=== PATIENT | male | born 1975 | race Caucasian/White ===

== ENCOUNTER 2016-12-14 15:23 | Emergency (ER) | payer SELFPAY ==
[~2016-12-14] VITALS: Ht 190.5 cm; Wt 136.4 kg
[~2016-12-14 15:23] MED LIST: BP; FLEXERIL PO; HUMALOG100 UNIT/M SC; KEFLEX500 M1 PO; LISINOPRIL10 MG PO; MEDDOSEPAK PO; METFORMIN1000 MG PO; METHADONE HCL10 MG PO; PERCOCET 10/31 COMBO PO; ULTRAM50 M1 PO; VICTOZA SC; VICTOZA18 MG/3 ML SC
[2016-12-14] MEDS ORDERED: VICTOZA18 MG/3 ML SC (17:28)
[2016-12-14] MEDS ORDERED: HYDROCO/APAP1 T13 PO (17:29)
[2016-12-14 18:06] LABS: HEMATOCRIT 42.8 % (39.0-50.0); HEMOGLOBIN 14.2 g/dl (14.0-18.0); IMMATURE GRANULOCYTES 0.4 % (0.0-1.0); MEAN CELL VOLUME 87.2 fL CALC (80.0-100.0); MEAN CORPUSCULAR HGB 28.9 pG CALC (26.0-32.0); MEAN CORPUSCULAR HGB CONC 33.2 g/L CALC (32.0-36.0); NEUT# 5.99 thou/uL (1.82-7.42); RED BLOOD COUNT 4.91 mill/uL (4.70-6.10); RED CELL DISTRI WIDTH 13.4 % (11.5-15.5)
[2016-12-14 18:40] LABS: ALBUMIN 3.5 g/dL (3.2-5.0); ALKALINE PHOSPHATASE 164 u/l (38-126); ANION GAP 15 (6-22 (CALC)); BILIRUBIN, TOTAL 0.4 mg/dL (0.0-1.4); BUN 17 mg/dL (9-20); BUN/CREATININE RATIO 12 (12-20 (CALC)); CALCIUM 8.7 mg/dL (8.4-10.2); CARBON DIOXIDE 26 mmol/l (22-30); CHLORIDE 98 mmol/l (95-108); CREATININE 1.4 mg/dL (0.7-1.3); GFR 56 ML/MIN (>=60 (CALC)); GFR FOR AFR.AMER. > 60 ML/MIN (>=60 (CALC)); POTASSIUM 4.2 mmol/l (3.5-5.1); SGOT/AST 31 u/l (17-59); SGPT/ALT 69 u/l (21-72); SODIUM 135 mmol/l (137-146)
[2016-12-14 18:51] LABS: GLUCOSE 559 mg/dL (75-110)
[2016-12-14 20:34] VITALS: BP 140/92
== END 2016-12-14 20:46 | disposition home or self-care (01) | DRG 639 ==
LOC: ED 15:23
PROVIDERS: Emergency Medicine
DX: E11.65 Type 2 diabetes mellitus with hyperglycemia (principal); Z79.4 Long term (current) use of insulin

== ENCOUNTER 2017-01-25 13:56 | Emergency (ER) | payer SELFPAY ==
[~2017-01-25] VITALS: Ht 190.5 cm; Wt 130.0 kg
[~2017-01-25 13:56] MED LIST changes: +HYDROCO/APAP1 T13 PO
[2017-01-25] MEDS ORDERED: HYDROCODONE/ACE1 TAB PO (14:14)
[2017-01-25] MEDS ORDERED: CLINDAMYCIN300 M1 PO (14:15)
[2017-01-25 14:23] VITALS: BP 168/104
[2017-01-26] MEDS ORDERED: PERCOCET 5/321 COMBO PO (04:23)
== END 2017-01-25 14:30 | disposition home or self-care (01) | DRG 159 ==
LOC: ED 13:56
DX: K05.10 Chronic gingivitis, plaque induced (principal); I10 Essential (primary) hypertension; K08.9 Disorder of teeth and supporting structures, unspecified; E11.9 Type 2 diabetes mellitus without complications

== ENCOUNTER 2017-01-26 02:58 | Emergency (ER) | payer SELFPAY ==
[~2017-01-26] VITALS: Ht 190.5 cm; Wt 131.4 kg
[~2017-01-26 02:58] MED LIST changes: +CLINDAMYCIN300 M1 PO; +HYDROCODONE/ACE1 TAB PO
[2017-01-26] MEDS ORDERED: PERCOCET 5/321 COMBO PO (04:23)
[2017-01-26 04:34] VITALS: BP 157/78
== END 2017-01-26 04:51 | disposition home or self-care (01) | DRG 159 ==
LOC: ED 02:58
DX: K03.81 Cracked tooth (principal); I10 Essential (primary) hypertension; E11.9 Type 2 diabetes mellitus without complications

== ENCOUNTER 2017-02-07 14:46 | Emergency (ER) | payer SELFPAY ==
[~2017-02-07] VITALS: Ht 190.5 cm; Wt 143.0 kg
[~2017-02-07 14:46] MED LIST changes: +PERCOCET 5/321 COMBO PO
[2017-02-07] MEDS ORDERED: VICTOZA18 MG/3 ML SC (15:08)
[2017-02-07 15:21] LABS: HEMATOCRIT 43.1 % (39.0-50.0); HEMOGLOBIN 14.6 g/dl (14.0-18.0); IMMATURE GRANULOCYTES 0.4 % (0.0-1.0); MEAN CELL VOLUME 87.8 fL CALC (80.0-100.0); MEAN CORPUSCULAR HGB 29.7 pG CALC (26.0-32.0); MEAN CORPUSCULAR HGB CONC 33.9 g/L CALC (32.0-36.0); NEUT# 4.69 thou/uL (1.82-7.42); RED BLOOD COUNT 4.91 mill/uL (4.70-6.10); RED CELL DISTRI WIDTH 13.2 % (11.5-15.5)
[2017-02-07 15:33] LABS: ALBUMIN 3.7 g/dL (3.2-5.0); ALKALINE PHOSPHATASE 166 u/l (38-126); ANION GAP 15 (6-22 (CALC)); BILIRUBIN, TOTAL 0.5 mg/dL (0.0-1.4); BUN 16 mg/dL (9-20); BUN/CREATININE RATIO 15 (12-20 (CALC)); CALCIUM 9.2 mg/dL (8.4-10.2); CARBON DIOXIDE 26 mmol/l (22-30); CHLORIDE 96 mmol/l (95-108); CREATININE 1.1 mg/dL (0.7-1.3); GFR > 60 ML/MIN (>=60 (CALC)); GFR FOR AFR.AMER. > 60 ML/MIN (>=60 (CALC)); POTASSIUM 4.2 mmol/l (3.5-5.1); SGOT/AST 35 u/l (17-59); SGPT/ALT 58 u/l (21-72); SODIUM 133 mmol/l (137-146); TOTAL PROTEIN 7.8 g/dL (6.3-8.2)
[2017-02-07 15:40] LABS: GLUCOSE 620 mg/dL (75-110)
[2017-02-07 15:47] LABS: MYOGLOBIN 31 ng/mL (0 - 121)
[2017-02-07 17:31] LABS: URINE BILIRUBIN - DIPSTICK NEGATIVE (NEGATIVE); URINE BLOOD DIPSTICK NEGATIVE (NEGATIVE); URINE CLARITY CLEAR; URINE COLOR YELLOW; URINE GLUCOSE - DIPSTICK >=1000 mg/dL (NEGATIVE); URINE KETONE NEGATIVE (NEGATIVE); URINE LEUK ESTERASE NEGATIVE (NEGATIVE); URINE NITRITE - DIPSTICK NEGATIVE (Negative); URINE PROTEIN - DIPSTICK 100 mg/dL (NEG-TRACE); URINE UROBILINOGEN - DIPSTICK 0.2 E.U./dL (0.2)
[2017-02-07 17:48] LABS: URINE RBC 0-2 RBC/hpf (0-5); URINE WBC 0-2 WBC/hpf (0-5)
[2017-02-07 18:47] VITALS: BP 154/87
== END 2017-02-07 18:47 | disposition home or self-care (01) | DRG 639 ==
LOC: ED 14:46
PROVIDERS: Emergency Medicine
DX: E11.65 Type 2 diabetes mellitus with hyperglycemia (principal); R42 Dizziness and giddiness; Z79.4 Long term (current) use of insulin

== ENCOUNTER 2017-04-08 14:10 | Emergency (ER) | payer SELFPAY ==
[~2017-04-08] VITALS: Ht 190.5 cm; Wt 150.0 kg
[2017-04-08 16:45] VITALS: BP 167/95
== END 2017-04-08 17:15 | disposition home or self-care (01) | DRG 93 ==
LOC: ED 14:10
DX: G89.29 Other chronic pain (principal); M54.5 Low back pain

== ENCOUNTER 2017-05-11 17:46 | Emergency (ER) | payer SELFPAY ==
[~2017-05-11] VITALS: Ht 190.5 cm; Wt 127.0 kg
[2017-05-11 19:43] VITALS: BP 127/98
== END 2017-05-11 19:44 | disposition home or self-care (01) | DRG 552 ==
LOC: ED 17:46
DX: M54.5 Low back pain (principal); I10 Essential (primary) hypertension; G89.29 Other chronic pain; E11.9 Type 2 diabetes mellitus without complications; W01.0XXA Fall on same level from slipping, tripping and stumbling without subsequent striking against object, initial encounter; Y92.512 Supermarket, store or market as the place of occurrence of the external cause

== ENCOUNTER 2017-06-13 23:40 | Emergency (ER) | payer SELFPAY ==
[~2017-06-13] VITALS: Ht 190.5 cm; Wt 127.3 kg
[2017-06-14 01:30] VITALS: BP 134/104
== END 2017-06-14 01:30 | disposition left against medical advice (07) | DRG 951 ==
LOC: ED 23:40 → LWOBS 06-14 01:30
DX: Z91.19 Patient's noncompliance with other medical treatment and regimen (principal)

== ENCOUNTER 2017-06-19 15:04 | Observation (INO) | payer SELFPAY ==
[~2017-06-19] VITALS: Ht 190.5 cm; Wt 131.0 kg
[2017-06-19] MEDS ORDERED: LORTAB 10-325 M1 TAB PO (15:24)
[2017-06-19 15:42] LABS: HEMOGLOBIN 13.1 g/dl (14.0-18.0); IMMATURE GRANULOCYTES 0.2 % (0.0-1.0); MEAN CORPUSCULAR HGB CONC 34.5 g/L CALC (32.0-36.0); NEUT# 5.54 thou/uL (1.82-7.42); RED BLOOD COUNT 4.37 mill/uL (4.70-6.10); RED CELL DISTRI WIDTH 13.2 % (11.5-15.5)
[2017-06-19 16:00] LABS: ALBUMIN 3.7 g/dL (3.2-5.0); ALKALINE PHOSPHATASE 102 u/l (38-126); ANION GAP 17 (6-22 (CALC)); BILIRUBIN, TOTAL 0.6 mg/dL (0.0-1.4); BUN 20 mg/dL (9-20); BUN/CREATININE RATIO 16 (12-20 (CALC)); CALCIUM 8.9 mg/dL (8.4-10.2); CARBON DIOXIDE 20 mmol/l (22-30); CHLORIDE 106 mmol/l (95-108); CREATININE 1.3 mg/dL (0.7-1.3); GFR > 60 ML/MIN (>=60 (CALC)); GFR FOR AFR.AMER. > 60 ML/MIN (>=60 (CALC)); POTASSIUM 4.6 mmol/l (3.5-5.1); SGOT/AST 19 u/l (17-59); SGPT/ALT 44 u/l (21-72); SODIUM 139 mmol/l (137-146); TOTAL PROTEIN 7.2 g/dL (6.3-8.2)
[2017-06-19 16:06] LABS: GLUCOSE 487 mg/dL (75-110)
[2017-06-19 19:11] LABS: URINE BILIRUBIN - DIPSTICK NEGATIVE (NEGATIVE); URINE BLOOD DIPSTICK NEGATIVE (NEGATIVE); URINE CLARITY CLEAR; URINE COLOR YELLOW; URINE GLUCOSE - DIPSTICK >=1000 mg/dL (NEGATIVE); URINE KETONE NEGATIVE (NEGATIVE); URINE LEUK ESTERASE NEGATIVE (Negative); URINE NITRITE - DIPSTICK NEGATIVE (Negative); URINE PROTEIN - DIPSTICK 100 mg/dL (NEG-TRACE); URINE UROBILINOGEN - DIPSTICK 0.2 E.U./dL (0.2)
[2017-06-19 19:29] LABS: URINE MUCUS FEW hpf (NONE-FEW); URINE SQUAMOUS EPITHELIAL CELL FEW EPI/hpf (0-FEW)
[2017-06-19 20:00] VITALS: BP 133/76
[2017-06-19] MEDS ORDERED: VICTOZA18 MG/3 ML SC (21:49)
[2017-06-19 23:00] VITALS: BP 130/80
[2017-06-20 04:00] VITALS: BP 132/86
[2017-06-20 07:36] VITALS: BP 158/79
[2017-06-20 10:58] LABS: CHOLESTEROL HDL RATIO 4.8 (<4.4 (CALC)); MAGNESIUM 1.8 mg/dL (1.6-2.3)
[2017-06-20 11:30] VITALS: BP 161/97
[2017-06-20] MEDS ORDERED: LORTAB 10-325 M1 TAB PO (15:03)
[2017-06-20 16:11] VITALS: BP 188/126
== END 2017-06-20 17:38 | disposition home or self-care (01) | DRG 93 ==
LOC: ED 15:04 → ED-I 17:00 → ED 18:59 → MS2 19:00
PROVIDERS: Emergency Medicine; Nurse Practitioner Family; ADMIT Internal Medicine; ATTEND Internal Medicine
DX: G89.29 Other chronic pain (principal); E11.65 Type 2 diabetes mellitus with hyperglycemia; I10 Essential (primary) hypertension; M51.26 Other intervertebral disc displacement, lumbar region; M48.06 Spinal stenosis, lumbar region; D64.9 Anemia, unspecified; Z68.36 Body mass index [BMI] 36.0-36.9, adult; Z91.14 Patient's other noncompliance with medication regimen; Z79.84 Long term (current) use of oral hypoglycemic drugs; Z79.891 Long term (current) use of opiate analgesic; Z79.4 Long term (current) use of insulin
CPT/HCPCS: G0378

== ENCOUNTER 2017-08-19 16:11 | Observation (INO) | payer SELFPAY ==
[~2017-08-19] VITALS: Ht 190.5 cm; Wt 131.8 kg
[~2017-08-19 16:11] MED LIST changes: +LORTAB 10-325 M1 TAB PO
[2017-08-19 16:35] LABS: HEMOGLOBIN 13.8 g/dl (14.0-18.0); IMMATURE GRANULOCYTES 0.3 % (0.0-1.0); MEAN CELL VOLUME 88.2 fL CALC (80.0-100.0); MEAN CORPUSCULAR HGB 29.7 pG CALC (26.0-32.0); MEAN CORPUSCULAR HGB CONC 33.7 g/L CALC (32.0-36.0); NEUT# 4.92 thou/uL (1.82-7.42); RED BLOOD COUNT 4.65 mill/uL (4.70-6.10)
[2017-08-19 16:45] LABS: ALBUMIN 3.7 g/dL (3.2-5.0); ALKALINE PHOSPHATASE 126 u/l (38-126); ANION GAP 18 (6-22 (CALC)); BILIRUBIN, TOTAL 0.6 mg/dL (0.0-1.4); BUN 18 mg/dL (9-20); BUN/CREATININE RATIO 13 (12-20 (CALC)); CALCIUM 8.7 mg/dL (8.4-10.2); CARBON DIOXIDE 21 mmol/l (22-30); CHLORIDE 100 mmol/l (95-108); CREATININE 1.4 mg/dL (0.7-1.3); GFR 56 ML/MIN (>=60 (CALC)); GFR FOR AFR.AMER. > 60 ML/MIN (>=60 (CALC)); LIPASE 164 u/l (23-300); POTASSIUM 4.6 mmol/l (3.5-5.1); SGOT/AST 39 u/l (17-59); SGPT/ALT 47 u/l (21-72); SODIUM 134 mmol/l (137-146); TOTAL PROTEIN 7.3 g/dL (6.3-8.2)
[2017-08-19 17:02] LABS: GLUCOSE 566 mg/dL (75-110)
[2017-08-19] MEDS ORDERED: LANTUS100 UNIT/M SC (17:38)
[2017-08-19 17:55] LABS: URINE BILIRUBIN - DIPSTICK NEGATIVE (NEGATIVE); URINE BLOOD DIPSTICK TRACE-LYSED (NEGATIVE); URINE CLARITY CLEAR; URINE COLOR YELLOW; URINE GLUCOSE - DIPSTICK >=1000 mg/dL (NEGATIVE); URINE KETONE NEGATIVE (NEGATIVE); URINE LEUK ESTERASE NEGATIVE (NEGATIVE); URINE NITRITE - DIPSTICK NEGATIVE (Negative); URINE PH 5.5 (4.5-8.0); URINE PROTEIN - DIPSTICK 100 mg/dL (NEG-TRACE); URINE UROBILINOGEN - DIPSTICK 0.2 E.U./dL (0.2)
[2017-08-19 18:05] LABS: BARBITURATES NEGATIVE (NEGATIVE); COCAINE NEGATIVE (NEGATIVE); METHADONE POSITIVE (NEGATIVE); OXCYCODONE NEGATIVE (NEGATIVE); TETRAHYDROCANNABIONOL NEGATIVE (NEGATIVE); TRICYLIC ANTIDEPRESSANTS NEGATIVE (NEGATIVE)
[2017-08-19 18:22] LABS: URINE SQUAMOUS EPITHELIAL CELL FEW EPI/hpf (0-FEW)
[2017-08-19 18:58] VITALS: BP 155/88
[2017-08-20 03:52] VITALS: BP 149/98
[2017-08-20 05:37] LABS: ANION GAP 10 (6-22 (CALC)); BUN 16 mg/dL (9-20); BUN/CREATININE RATIO 13 (12-20 (CALC)); CALCIUM 8.5 mg/dL (8.4-10.2); CARBON DIOXIDE 27 mmol/l (22-30); CHLORIDE 106 mmol/l (95-108); CREATININE 1.2 mg/dL (0.7-1.3); GFR > 60 ML/MIN (>=60 (CALC)); GFR FOR AFR.AMER. > 60 ML/MIN (>=60 (CALC)); GLUCOSE 199 mg/dL (75-110); MAGNESIUM 1.8 mg/dL (1.6-2.3); SODIUM 139 mmol/l (137-146)
[2017-08-20 08:06] VITALS: BP 133/84
[2017-08-20 08:09] VITALS: BP 133/84
[2017-08-20] MEDS ORDERED: LISINOPRIL20 M1 PO (13:02)
== END 2017-08-20 13:25 | disposition home or self-care (01) | DRG 639 ==
LOC: ED 16:11 → ED-I 17:15 → ED 17:36 → MS2 17:37
PROVIDERS: Family Medicine; ADMIT Internal Medicine; ATTEND Internal Medicine
DX: E11.65 Type 2 diabetes mellitus with hyperglycemia (principal); G89.29 Other chronic pain; I10 Essential (primary) hypertension; Z79.4 Long term (current) use of insulin; M54.9 Dorsalgia, unspecified; Z79.891 Long term (current) use of opiate analgesic
CPT/HCPCS: G0378

== ENCOUNTER 2017-09-24 20:39 | Emergency (ER) | payer SELFPAY ==
[~2017-09-24] VITALS: Ht 190.5 cm; Wt 127.3 kg
[~2017-09-24 20:39] MED LIST changes: +LANTUS100 UNIT/M SC; +LISINOPRIL20 M1 PO
[2017-09-24] MEDS ORDERED: LEVEMIR100 UNIT/M SC (20:58)
[2017-09-24 21:13] LABS: HEMATOCRIT 46.9 % (39.0-50.0); HEMOGLOBIN 15.5 g/dl (14.0-18.0); IMMATURE GRANULOCYTES 0.4 % (0.0-1.0); MEAN CORPUSCULAR HGB 29.4 pG CALC (26.0-32.0); NEUT# 6.14 thou/uL (1.82-7.42); RED BLOOD COUNT 5.27 mill/uL (4.70-6.10); RED CELL DISTRI WIDTH 12.8 % (11.5-15.5)
[2017-09-24 21:37] LABS: ALBUMIN 4.1 g/dL (3.2-5.0); BILIRUBIN, TOTAL 0.4 mg/dL (0.0-1.4); CALCIUM 9.4 mg/dL (8.4-10.2); CREATININE 1.6 mg/dL (0.7-1.3); POTASSIUM 5.1 mmol/l (3.5-5.1); TOTAL PROTEIN 7.4 g/dL (6.3-8.2)
[2017-09-25 01:40] VITALS: BP 147/90
== END 2017-09-25 01:45 | disposition home or self-care (01) | DRG 552 ==
LOC: ED 20:39
PROVIDERS: Emergency Medicine
DX: S33.5XXA Sprain of ligaments of lumbar spine, initial encounter (principal); E11.9 Type 2 diabetes mellitus without complications; G89.29 Other chronic pain; I10 Essential (primary) hypertension; W18.39XA Other fall on same level, initial encounter; M54.9 Dorsalgia, unspecified

== ENCOUNTER 2017-09-27 19:05 | Observation (INO) | payer OTHER ==
[~2017-09-27] VITALS: Ht 190.5 cm; Wt 126.3 kg
[~2017-09-27 19:05] MED LIST changes: +LEVEMIR100 UNIT/M SC
[2017-09-28 04:45] VITALS: BP 173/92
[2017-09-28 08:30] VITALS: BP 128/74
[2017-09-28 10:37] LABS: ANION GAP 13 (6-22 (CALC)); BUN 21 mg/dL (9-20); BUN/CREATININE RATIO 17 (12-20 (CALC)); CALCIUM 8.9 mg/dL (8.4-10.2); CARBON DIOXIDE 26 mmol/l (22-30); CHLORIDE 102 mmol/l (95-108); CREATININE 1.3 mg/dL (0.7-1.3); GFR > 60 ML/MIN (>=60 (CALC)); GFR FOR AFR.AMER. > 60 ML/MIN (>=60 (CALC)); GLUCOSE 398 mg/dL (75-110); MAGNESIUM 1.8 mg/dL (1.6-2.3); POTASSIUM 4.6 mmol/l (3.5-5.1); SODIUM 137 mmol/l (137-146)
[2017-09-28 10:47] LABS: HEMATOCRIT 38.6 % (39.0-50.0); IMMATURE GRANULOCYTES 0.2 % (0.0-1.0); MEAN CELL VOLUME 87.5 fL CALC (80.0-100.0); MEAN CORPUSCULAR HGB 29.5 pG CALC (26.0-32.0); MEAN CORPUSCULAR HGB CONC 33.7 g/L CALC (32.0-36.0); NEUT# 5.36 thou/uL (1.82-7.42); RED BLOOD COUNT 4.41 mill/uL (4.70-6.10); RED CELL DISTRI WIDTH 12.5 % (11.5-15.5)
[2017-09-28 11:06] VITALS: BP 128/74
== END 2017-09-28 14:50 | disposition home or self-care (01) | DRG 552 ==
LOC: ED 19:05 → ED-I 09-28 04:00 → ED 09-28 04:25 → MS2 09-28 04:26
PROVIDERS: Nurse Practitioner Family; ADMIT Internal Medicine; ATTEND Internal Medicine
DX: M54.16 Radiculopathy, lumbar region (principal); E11.9 Type 2 diabetes mellitus without complications; I10 Essential (primary) hypertension; V48.5XXA Car driver injured in noncollision transport accident in traffic accident, initial encounter; Z79.891 Long term (current) use of opiate analgesic
CPT/HCPCS: G0378

== ENCOUNTER 2017-10-08 23:32 | Emergency (ER) | payer SELFPAY ==
[~2017-10-08] VITALS: Ht 190.5 cm; Wt 125.0 kg
[2017-10-09] MEDS ORDERED: NAPROSYN500 MG PO (01:49)
[2017-10-09 02:01] VITALS: BP 143/78
== END 2017-10-09 02:16 | disposition home or self-care (01) | DRG 563 ==
LOC: ED 23:32
DX: S39.012A Strain of muscle, fascia and tendon of lower back, initial encounter (principal); W18.30XA Fall on same level, unspecified, initial encounter; Y93.01 Activity, walking, marching and hiking; Y92.488 Other paved roadways as the place of occurrence of the external cause

== ENCOUNTER 2018-01-11 00:47 | Emergency (ER) | payer SELFPAY ==
[~2018-01-11] VITALS: Ht 190.5 cm; Wt 127.3 kg
[~2018-01-11 00:47] MED LIST changes: +NAPROSYN500 MG PO
[2018-01-11 01:37] LABS: URINE BILIRUBIN - DIPSTICK NEGATIVE (NEGATIVE); URINE BLOOD DIPSTICK TRACE-LYSED (NEGATIVE); URINE COLOR YELLOW; URINE GLUCOSE - DIPSTICK >=1000 mg/dL (NEGATIVE); URINE KETONE NEGATIVE (NEGATIVE); URINE LEUK ESTERASE NEGATIVE (NEGATIVE); URINE NITRITE - DIPSTICK NEGATIVE (Negative); URINE PH 5.5 (4.5-8.0); URINE PROTEIN - DIPSTICK 100 mg/dL (NEG-TRACE); URINE UROBILINOGEN - DIPSTICK 0.2 E.U./dL (0.2)
[2018-01-11 01:40] LABS: URINE CLARITY SL CLOUDY
[2018-01-11 01:44] LABS: BARBITURATES NEGATIVE (NEGATIVE); COCAINE NEGATIVE (NEGATIVE); METHADONE POSITIVE (NEGATIVE); TETRAHYDROCANNABIONOL NEGATIVE (NEGATIVE); TRICYLIC ANTIDEPRESSANTS POSITIVE (NEGATIVE)
[2018-01-11 01:45] LABS: OXCYCODONE NEGATIVE (NEGATIVE)
[2018-01-11 01:46] LABS: URINE BACTERIA FEW hpf; URINE MUCUS FEW hpf (NONE-FEW); URINE RBC 0-2 RBC/hpf (0-5); URINE SQUAMOUS EPITHELIAL CELL MODERATE EPI/hpf (0-FEW); URINE WBC 0-2 WBC/hpf (0-5)
[2018-01-11] MEDS ORDERED: ASPERCREME LIDOCA41 TOP (02:06)
[2018-01-11 02:28] VITALS: BP 153/111
== END 2018-01-11 03:11 | disposition home or self-care (01) | DRG 605 ==
LOC: ED 00:47
PROVIDERS: Family Medicine
DX: S30.0XXA Contusion of lower back and pelvis, initial encounter (principal); M54.5 Low back pain; W01.190A Fall on same level from slipping, tripping and stumbling with subsequent striking against furniture, initial encounter; Y93.9 Activity, unspecified; Y92.009 Unspecified place in unspecified non-institutional (private) residence as the place of occurrence of the external cause

== ENCOUNTER 2018-01-12 23:25 | Emergency (ER) | payer SELFPAY ==
[~2018-01-12] VITALS: Ht 190.5 cm; Wt 128.0 kg
[~2018-01-12 23:25] MED LIST changes: +ASPERCREME LIDOCA41 TOP
[2018-01-13 00:04] LABS: IMMATURE GRANULOCYTES 0.3 % (0.0-1.0); MEAN CELL VOLUME 86.9 fL CALC (80.0-100.0); MEAN CORPUSCULAR HGB 29.5 pG CALC (26.0-32.0); NEUT# 5.43 thou/uL (1.82-7.42); RED BLOOD COUNT 5.35 mill/uL (4.70-6.10); RED CELL DISTRI WIDTH 13.3 % (11.5-15.5)
[2018-01-13 00:05] LABS: HEMATOCRIT 46.5 % (39.0-50.0); HEMOGLOBIN 15.8 g/dl (14.0-18.0)
[2018-01-13 00:23] LABS: ALBUMIN 3.7 g/dL (3.2-5.0); ALKALINE PHOSPHATASE 149 u/l (38-126); ANION GAP 15 (6-22 (CALC)); BILIRUBIN, TOTAL 0.4 mg/dL (0.0-1.4); BUN 17 mg/dL (9-20); BUN/CREATININE RATIO 14 (12-20 (CALC)); CARBON DIOXIDE 24 mmol/l (22-30); CHLORIDE 100 mmol/l (95-108); CREATININE 1.2 mg/dL (0.7-1.3); GFR > 60 ML/MIN (>=60 (CALC)); GFR FOR AFR.AMER. > 60 ML/MIN (>=60 (CALC)); POTASSIUM 4.2 mmol/l (3.5-5.1); SGOT/AST 27 u/l (17-59); SGPT/ALT 50 u/l (21-72); SODIUM 136 mmol/l (137-146); TOTAL PROTEIN 7.8 g/dL (6.3-8.2)
[2018-01-13 02:40] VITALS: BP 139/94
== END 2018-01-13 02:40 | disposition home or self-care (01) | DRG 639 ==
LOC: ED 23:25
PROVIDERS: Emergency Medicine
DX: E11.65 Type 2 diabetes mellitus with hyperglycemia (principal); Z79.4 Long term (current) use of insulin; I10 Essential (primary) hypertension; G89.29 Other chronic pain; M54.9 Dorsalgia, unspecified

== ENCOUNTER 2018-01-16 02:48 | Emergency (ER) | payer SELFPAY ==
[~2018-01-16] VITALS: Ht 190.5 cm; Wt 128.0 kg
[2018-01-16 03:42] LABS: HEMATOCRIT 45.4 % (39.0-50.0); HEMOGLOBIN 15.4 g/dl (14.0-18.0); IMMATURE GRANULOCYTES 0.2 % (0.0-1.0); MEAN CELL VOLUME 86.8 fL CALC (80.0-100.0); MEAN CORPUSCULAR HGB 29.4 pG CALC (26.0-32.0); MEAN CORPUSCULAR HGB CONC 33.9 g/L CALC (32.0-36.0); NEUT# 5.1 thou/uL (1.82-7.42); RED BLOOD COUNT 5.23 mill/uL (4.70-6.10); RED CELL DISTRI WIDTH 13.2 % (11.5-15.5)
[2018-01-16 03:53] LABS: ALKALINE PHOSPHATASE 145 u/l (38-126); ANION GAP 22 (6-22 (CALC)); BILIRUBIN, TOTAL 0.6 mg/dL (0.0-1.4); BUN 16 mg/dL (9-20); BUN/CREATININE RATIO 14 (12-20 (CALC)); CARBON DIOXIDE 20 mmol/l (22-30); CHLORIDE 95 mmol/l (95-108); CREATININE 1.2 mg/dL (0.7-1.3); GFR > 60 ML/MIN (>=60 (CALC)); GFR FOR AFR.AMER. > 60 ML/MIN (>=60 (CALC)); POTASSIUM 4.3 mmol/l (3.5-5.1); SGOT/AST 23 u/l (17-59); SGPT/ALT 46 u/l (21-72); SODIUM 133 mmol/l (137-146)
[2018-01-16 04:53] VITALS: BP 168/108
== END 2018-01-16 05:20 | disposition home or self-care (01) | DRG 639 ==
LOC: ED 02:48
PROVIDERS: Emergency Medicine
DX: E11.65 Type 2 diabetes mellitus with hyperglycemia (principal); I10 Essential (primary) hypertension; G89.29 Other chronic pain; M54.9 Dorsalgia, unspecified; Z91.14 Patient's other noncompliance with medication regimen

== ENCOUNTER 2018-01-16 20:02 | Emergency (ER) | payer SELFPAY ==
[~2018-01-16] VITALS: Ht 190.5 cm; Wt 136.0 kg
[2018-01-16 20:14] VITALS: BP 184/119
== END 2018-01-16 20:15 | disposition left against medical advice (07) | DRG 552 ==
LOC: ED 20:02
DX: M54.9 Dorsalgia, unspecified (principal); E11.65 Type 2 diabetes mellitus with hyperglycemia; I10 Essential (primary) hypertension; G89.29 Other chronic pain; Z91.19 Patient's noncompliance with other medical treatment and regimen

== ENCOUNTER 2018-01-16 21:57 | Emergency (ER) | payer SELFPAY ==
[~2018-01-16] VITALS: Ht 190.5 cm; Wt 140.0 kg
[2018-01-16 22:02] VITALS: BP 164/110
== END 2018-01-16 22:12 | disposition left against medical advice (07) | DRG 552 ==
LOC: ED 21:57
DX: M54.9 Dorsalgia, unspecified (principal); G89.29 Other chronic pain; E11.65 Type 2 diabetes mellitus with hyperglycemia; I10 Essential (primary) hypertension; Z91.19 Patient's noncompliance with other medical treatment and regimen

== ENCOUNTER 2018-05-21 06:32 | Emergency (ER) | payer SELFPAY ==
[~2018-05-21] VITALS: Ht 190.5 cm; Wt 127.2 kg
[2018-05-21 07:02] VITALS: BP 153/117
== END 2018-05-21 07:44 | disposition home or self-care (01) | DRG 552 ==
LOC: ED 06:32
DX: M54.5 Low back pain (principal); G89.29 Other chronic pain; E11.9 Type 2 diabetes mellitus without complications; I10 Essential (primary) hypertension; Z79.891 Long term (current) use of opiate analgesic

== ENCOUNTER 2018-08-05 14:00 | Emergency (ER) | payer SELFPAY ==
[~2018-08-05] VITALS: Ht 190.5 cm; Wt 136.0 kg
[2018-08-05 14:00] VITALS: BP 140/98
== END 2018-08-05 14:10 | disposition left against medical advice (07) | DRG 951 ==
LOC: ED 14:00 → LWOBS 14:10
DX: Z91.19 Patient's noncompliance with other medical treatment and regimen (principal)

== ENCOUNTER 2018-08-06 05:14 | Emergency (ER) | payer SELFPAY | END 2018-08-06 05:35 | disposition left against medical advice (07) | DRG 951 | LOC: ED 05:14 → LWOBS 05:35 | DX: Z91.19 Patient's noncompliance with other medical treatment and regimen (principal) ==

== ENCOUNTER 2018-08-09 14:17 | Emergency (ER) | payer SELFPAY | END 2018-08-09 15:01 | disposition left against medical advice (07) | DRG 951 | LOC: ED 14:17 → LWOBS 15:01 | DX: Z91.19 Patient's noncompliance with other medical treatment and regimen (principal) ==

== ENCOUNTER 2018-08-10 11:38 | Inpatient (IN) | payer SELFPAY ==
[~2018-08-10] VITALS: Ht 190.5 cm; Wt 127.0 kg
[2018-08-10 12:04] LABS: HEMATOCRIT 40.5 % (39.0-50.0); HEMOGLOBIN 13.6 g/dl (14.0-18.0); IMMATURE GRANULOCYTES 0.3 % (0.0-5.0); MEAN CELL VOLUME 88.6 fL CALC (80.0-100.0); MEAN CORPUSCULAR HGB 29.8 pG CALC (26.0-32.0); MEAN CORPUSCULAR HGB CONC 33.6 g/L CALC (32.0-36.0); NEUT# 6.57 thou/uL (1.82-7.42); RED BLOOD COUNT 4.57 mill/uL (4.70-6.10); RED CELL DISTRI WIDTH 13.4 % (11.5-15.5)
[2018-08-10 12:18] LABS: ALBUMIN 3.2 g/dL (3.2-5.0); ALKALINE PHOSPHATASE 144 u/l (38-126); BILIRUBIN, TOTAL 0.4 mg/dL (0.0-1.4); BUN 18 mg/dL (9-20); BUN/CREATININE RATIO 14 (12-20 (CALC)); CARBON DIOXIDE 20 mmol/l (22-30); CREATININE 1.3 mg/dL (0.7-1.3); GFR > 60 ML/MIN (>=60 (CALC)); GFR FOR AFR.AMER. > 60 ML/MIN (>=60 (CALC)); POTASSIUM 4.3 mmol/l (3.5-5.1); SGOT/AST 17 u/l (17-59); SODIUM 139 mmol/l (137-146); TOTAL PROTEIN 6.7 g/dL (6.3-8.2)
[2018-08-10 12:19] LABS: ANION GAP 15 (6-22 (CALC)); CHLORIDE 108 mmol/l (95-108); ETHYL ALCOHOL 0 mg/dl (0-30)
[2018-08-10 12:40] LABS: URINE BILIRUBIN - DIPSTICK NEGATIVE (NEGATIVE); URINE BLOOD DIPSTICK NEGATIVE (NEGATIVE); URINE COLOR YELLOW; URINE GLUCOSE - DIPSTICK >=1000 mg/dL (NEGATIVE); URINE KETONE NEGATIVE (NEGATIVE); URINE LEUK ESTERASE NEGATIVE (NEGATIVE); URINE NITRITE - DIPSTICK NEGATIVE (Negative); URINE PH 5.5 (4.5-8.0); URINE PROTEIN - DIPSTICK 100 mg/dL (NEG-TRACE); URINE SPECIFIC GRAVITY 1.015; URINE UROBILINOGEN - DIPSTICK 0.2 E.U./dL (0.2)
[2018-08-10 12:41] LABS: URINE CLARITY CLEAR
[2018-08-10 12:42] LABS: COCAINE NEGATIVE (NEGATIVE); TETRAHYDROCANNABIONOL NEGATIVE (NEGATIVE)
[2018-08-10 12:43] LABS: BARBITURATES NEGATIVE (NEGATIVE); METHADONE NEGATIVE (NEGATIVE); OXCYCODONE NEGATIVE (NEGATIVE); TRICYLIC ANTIDEPRESSANTS NEGATIVE (NEGATIVE)
[2018-08-10 12:50] LABS: URINE SQUAMOUS EPITHELIAL CELL FEW EPI/hpf (0-FEW)
[2018-08-10 16:30] VITALS: BP 157/85
[2018-08-10 20:00] VITALS: BP 135/85
[2018-08-10 20:44] LABS: HEMATOCRIT 40.4 % (39.0-50.0); HEMOGLOBIN 13.2 g/dl (14.0-18.0); IMMATURE GRANULOCYTES 0.4 % (0.0-5.0); MEAN CELL VOLUME 91.2 fL CALC (80.0-100.0); MEAN CORPUSCULAR HGB 29.8 pG CALC (26.0-32.0); MEAN CORPUSCULAR HGB CONC 32.7 g/L CALC (32.0-36.0); NEUT# 5.06 thou/uL (1.82-7.42); RED BLOOD COUNT 4.43 mill/uL (4.70-6.10); RED CELL DISTRI WIDTH 13.8 % (11.5-15.5)
[2018-08-10 21:00] VITALS: BP 108/54
[2018-08-10 21:04] LABS: ANION GAP 15 (6-22 (CALC)); BUN 15 mg/dL (9-20); BUN/CREATININE RATIO 12 (12-20 (CALC)); CARBON DIOXIDE 15 mmol/l (22-30); CHLORIDE 117 mmol/l (95-108); CREATININE 1.2 mg/dL (0.7-1.3); GFR > 60 ML/MIN (>=60 (CALC)); GFR FOR AFR.AMER. > 60 ML/MIN (>=60 (CALC)); POTASSIUM 4.7 mmol/l (3.5-5.1); SODIUM 143 mmol/l (137-146)
[2018-08-10 22:00] VITALS: BP 109/53
[2018-08-10 23:00] VITALS: BP 116/83
[2018-08-11] VITALS (21 sets, daily range): BP systolic 131–181; BP diastolic 66–105
[2018-08-11 00:53] LABS: ANION GAP 17 (6-22 (CALC)); BUN 15 mg/dL (9-20); BUN/CREATININE RATIO 13 (12-20 (CALC)); CARBON DIOXIDE 14 mmol/l (22-30); CHLORIDE 118 mmol/l (95-108); CREATININE 1.1 mg/dL (0.7-1.3); GFR > 60 ML/MIN (>=60 (CALC)); GFR FOR AFR.AMER. > 60 ML/MIN (>=60 (CALC)); POTASSIUM 4.7 mmol/l (3.5-5.1); SODIUM 145 mmol/l (137-146)
[2018-08-11 04:38] LABS: HEMOGLOBIN 14.3 g/dl (14.0-18.0); IMMATURE GRANULOCYTES 0.4 % (0.0-5.0); MEAN CELL VOLUME 91.1 fL CALC (80.0-100.0); MEAN CORPUSCULAR HGB 29.6 pG CALC (26.0-32.0); MEAN CORPUSCULAR HGB CONC 32.5 g/L CALC (32.0-36.0); NEUT# 12.12 thou/uL (1.82-7.42); RED BLOOD COUNT 4.83 mill/uL (4.70-6.10)
[2018-08-11 05:04] LABS: ANION GAP 14 (6-22 (CALC)); BUN 15 mg/dL (9-20); BUN/CREATININE RATIO 12 (12-20 (CALC)); CARBON DIOXIDE 18 mmol/l (22-30); CHLORIDE 117 mmol/l (95-108); CREATININE 1.3 mg/dL (0.7-1.3); GFR > 60 ML/MIN (>=60 (CALC)); GFR FOR AFR.AMER. > 60 ML/MIN (>=60 (CALC)); POTASSIUM 4.6 mmol/l (3.5-5.1); SODIUM 145 mmol/l (137-146)
[2018-08-11 09:43] LABS: ANION GAP 13 (6-22 (CALC)); BUN 14 mg/dL (9-20); BUN/CREATININE RATIO 11 (12-20 (CALC)); CARBON DIOXIDE 16 mmol/l (22-30); CHLORIDE 119 mmol/l (95-108); CREATININE 1.3 mg/dL (0.7-1.3); GFR > 60 ML/MIN (>=60 (CALC)); GFR FOR AFR.AMER. > 60 ML/MIN (>=60 (CALC)); POTASSIUM 4.4 mmol/l (3.5-5.1); SODIUM 144 mmol/l (137-146)
[2018-08-11 10:13] LABS: CHOLESTEROL HDL RATIO 3.7 (<4.4 (CALC))
[2018-08-11 13:49] LABS: ANION GAP 14 (6-22 (CALC)); BUN 14 mg/dL (9-20); BUN/CREATININE RATIO 11 (12-20 (CALC)); CARBON DIOXIDE 17 mmol/l (22-30); CHLORIDE 115 mmol/l (95-108); CREATININE 1.3 mg/dL (0.7-1.3); GFR > 60 ML/MIN (>=60 (CALC)); GFR FOR AFR.AMER. > 60 ML/MIN (>=60 (CALC)); MAGNESIUM 1.9 mg/dL (1.6-2.3); POTASSIUM 4.7 mmol/l (3.5-5.1); SODIUM 140 mmol/l (137-146)
[2018-08-11 21:18] LABS: ANION GAP 10 (6-22 (CALC)); BUN 11 mg/dL (9-20); BUN/CREATININE RATIO 9 (12-20 (CALC)); CARBON DIOXIDE 19 mmol/l (22-30); CHLORIDE 116 mmol/l (95-108); CREATININE 1.3 mg/dL (0.7-1.3); GFR > 60 ML/MIN (>=60 (CALC)); GFR FOR AFR.AMER. > 60 ML/MIN (>=60 (CALC)); POTASSIUM 3.8 mmol/l (3.5-5.1); SODIUM 141 mmol/l (137-146)
[2018-08-12] VITALS (12 sets, daily range): BP systolic 135–167; BP diastolic 54–100
[2018-08-12 02:27] LABS: URINE BILIRUBIN - DIPSTICK NEGATIVE (NEGATIVE); URINE BLOOD DIPSTICK NEGATIVE (NEGATIVE); URINE COLOR YELLOW; URINE GLUCOSE - DIPSTICK 500 mg/dL (NEGATIVE); URINE KETONE NEGATIVE (NEGATIVE); URINE LEUK ESTERASE NEGATIVE (Negative); URINE NITRITE - DIPSTICK NEGATIVE (Negative); URINE PROTEIN - DIPSTICK 100 mg/dL (NEG-TRACE); URINE SPECIFIC GRAVITY 1.015; URINE UROBILINOGEN - DIPSTICK 0.2 E.U./dL (0.2)
[2018-08-12 02:31] LABS: URINE CLARITY CLEAR
[2018-08-12 05:00] LABS: URINE HYALINE CAST FEW lpf (NONE-RARE); URINE RBC 0-2 RBC/hpf (0-5); URINE SQUAMOUS EPITHELIAL CELL FEW EPI/hpf (0-FEW)
[2018-08-12 05:53] LABS: ALBUMIN 2.7 g/dL (3.2-5.0); BUN 10 mg/dL (9-20); CARBON DIOXIDE 22 mmol/l (22-30); CHLORIDE 117 mmol/l (95-108); CREATININE 1.2 mg/dL (0.7-1.3); GFR > 60 ML/MIN (>=60 (CALC)); GFR FOR AFR.AMER. > 60 ML/MIN (>=60 (CALC)); POTASSIUM 3.6 mmol/l (3.5-5.1); SODIUM 144 mmol/l (137-146)
[2018-08-13] VITALS (14 sets, daily range): BP systolic 129–189; BP diastolic 56–93
[2018-08-13 05:17] LABS: HEMATOCRIT 39.8 % (39.0-50.0); HEMOGLOBIN 13.6 g/dl (14.0-18.0); IMMATURE GRANULOCYTES 0.4 % (0.0-5.0); MEAN CELL VOLUME 87.7 fL CALC (80.0-100.0); MEAN CORPUSCULAR HGB CONC 34.2 g/L CALC (32.0-36.0); NEUT# 4.88 thou/uL (1.82-7.42); RED BLOOD COUNT 4.54 mill/uL (4.70-6.10); RED CELL DISTRI WIDTH 13.5 % (11.5-15.5)
[2018-08-13 05:24] LABS: ALBUMIN 3.2 g/dL (3.2-5.0); ALKALINE PHOSPHATASE 110 u/l (38-126); ANION GAP 10 (6-22 (CALC)); BILIRUBIN, TOTAL 0.5 mg/dL (0.0-1.4); BUN 12 mg/dL (9-20); BUN/CREATININE RATIO 12 (12-20 (CALC)); CARBON DIOXIDE 24 mmol/l (22-30); CHLORIDE 112 mmol/l (95-108); GFR > 60 ML/MIN (>=60 (CALC)); GFR FOR AFR.AMER. > 60 ML/MIN (>=60 (CALC)); MAGNESIUM 1.8 mg/dL (1.6-2.3); POTASSIUM 3.8 mmol/l (3.5-5.1); SODIUM 143 mmol/l (137-146); TOTAL PROTEIN 6.3 g/dL (6.3-8.2)
[2018-08-13 05:28] LABS: SGOT/AST 32 u/l (17-59)
[2018-08-13 08:11] LABS: URINE BILIRUBIN - DIPSTICK NEGATIVE (NEGATIVE); URINE COLOR YELLOW; URINE GLUCOSE - DIPSTICK >=1000 mg/dL (NEGATIVE); URINE KETONE 15 mg/dL (NEGATIVE); URINE LEUK ESTERASE NEGATIVE (Negative); URINE NITRITE - DIPSTICK NEGATIVE (Negative); URINE PROTEIN - DIPSTICK 100 mg/dL (NEG-TRACE); URINE SPECIFIC GRAVITY >=1.030; URINE UROBILINOGEN - DIPSTICK 0.2 E.U./dL (0.2)
[2018-08-13 08:13] LABS: URINE BLOOD DIPSTICK NEGATIVE (NEGATIVE); URINE CLARITY CLEAR
[2018-08-13 08:18] LABS: URINE WBC 0-2 WBC/hpf (0-5)
== END 2018-08-13 21:15 | disposition short-term general hospital (02) | DRG 917 ==
LOC: ED 11:38 → ED-I 14:50 → ED 15:22 → ICU 15:23
PROVIDERS: Emergency Medicine; Internal Medicine Nephrology; Nurse Practitioner Family; ADMIT Internal Medicine; ATTEND Internal Medicine
DX: T39.312A Poisoning by propionic acid derivatives, intentional self-harm, initial encounter (principal); E11.10 Type 2 diabetes mellitus with ketoacidosis without coma; E11.22 Type 2 diabetes mellitus with diabetic chronic kidney disease; I16.0 Hypertensive urgency; I12.9 Hypertensive chronic kidney disease with stage 1 through stage 4 chronic kidney disease, or unspecified chronic kidney disease; N18.2 Chronic kidney disease, stage 2 (mild); F32.9 Major depressive disorder, single episode, unspecified; E78.5 Hyperlipidemia, unspecified; G89.29 Other chronic pain; M54.5 Low back pain; E66.9 Obesity, unspecified; Z68.34 Body mass index [BMI] 34.0-34.9, adult; T38.3X6A Underdosing of insulin and oral hypoglycemic [antidiabetic] drugs, initial encounter; Z91.11 Patient's noncompliance with dietary regimen; Z91.120 Patient's intentional underdosing of medication regimen due to financial hardship; Z79.4 Long term (current) use of insulin; Z59.0 Homelessness; Z79.891 Long term (current) use of opiate analgesic

== ENCOUNTER 2018-09-21 18:47 | Emergency (ER) | payer SELFPAY ==
[~2018-09-21] VITALS: Ht 190.5 cm; Wt 126.0 kg
[2018-09-21] MEDS ORDERED: LANTUS100 UNIT/M SC (18:58)
[2018-09-21] MEDS ORDERED: TRAMADOL HCL50 MG PO (19:12)
[2018-09-21] MEDS ORDERED: VOLTAREN - GENE75 MG PO (19:12)
[2018-09-21 19:23] VITALS: BP 155/104
== END 2018-09-21 19:23 | disposition home or self-care (01) | DRG 552 ==
LOC: ED 18:47
DX: M54.5 Low back pain (principal); G89.29 Other chronic pain

== ENCOUNTER 2018-10-04 08:18 | Emergency (ER) | payer SELFPAY ==
[~2018-10-04] VITALS: Ht 190.5 cm; Wt 123.8 kg
[~2018-10-04 08:18] MED LIST changes: +TRAMADOL HCL50 MG PO; +VOLTAREN - GENE75 MG PO
[2018-10-04 09:17] VITALS: BP 148/70
[2018-10-05] MEDS ORDERED: NOVOLIN R100 UNIT/M SC (06:14)
[2018-10-05] MEDS ORDERED: NOVOLIN N100 UNIT/M SC (06:14)
== END 2018-10-04 09:17 | disposition home or self-care (01) | DRG 639 ==
LOC: ED 08:18
DX: E11.65 Type 2 diabetes mellitus with hyperglycemia (principal); I10 Essential (primary) hypertension; T38.3X6A Underdosing of insulin and oral hypoglycemic [antidiabetic] drugs, initial encounter; Z91.120 Patient's intentional underdosing of medication regimen due to financial hardship

== ENCOUNTER 2018-10-04 16:12 | Emergency (ER) | payer SELFPAY ==
[2018-10-05] MEDS ORDERED: NOVOLIN N100 UNIT/M SC (06:14)
[2018-10-05] MEDS ORDERED: NOVOLIN R100 UNIT/M SC (06:14)
== END 2018-10-04 16:15 | disposition left against medical advice (07) | DRG 951 ==
LOC: ED 16:12 → LWOBS 16:14
DX: Z91.19 Patient's noncompliance with other medical treatment and regimen (principal)

== ENCOUNTER 2018-10-05 03:41 | Emergency (ER) | payer SELFPAY ==
[~2018-10-05] VITALS: Ht 190.5 cm; Wt 123.8 kg
[2018-10-05 04:17] LABS: HEMATOCRIT 44.9 % (39.0-50.0); HEMOGLOBIN 15.3 g/dl (14.0-18.0); IMMATURE GRANULOCYTES 0.6 % (0.0-5.0); MEAN CORPUSCULAR HGB CONC 34.1 g/L CALC (32.0-36.0); NEUT# 6.42 thou/uL (1.82-7.42); RED BLOOD COUNT 5.1 mill/uL (4.70-6.10)
[2018-10-05 04:25] LABS: ALBUMIN 3.5 g/dL (3.2-5.0); ALKALINE PHOSPHATASE 160 u/l (38-126); BILIRUBIN, TOTAL 0.5 mg/dL (0.0-1.4); BUN 15 mg/dL (9-20); BUN/CREATININE RATIO 11 (12-20 (CALC)); CARBON DIOXIDE 24 mmol/l (22-30); CHLORIDE 101 mmol/l (95-108); CREATININE 1.4 mg/dL (0.7-1.3); GFR 56 ML/MIN (>=60 (CALC)); GFR FOR AFR.AMER. > 60 ML/MIN (>=60 (CALC)); SGOT/AST 17 u/l (17-59); SODIUM 136 mmol/l (137-146)
[2018-10-05 04:37] LABS: ANION GAP 16 (6-22 (CALC)); POTASSIUM 4.6 mmol/l (3.5-5.1)
[2018-10-05 05:16] LABS: URINE BILIRUBIN - DIPSTICK NEGATIVE (NEGATIVE); URINE BLOOD DIPSTICK NEGATIVE (NEGATIVE); URINE COLOR YELLOW; URINE GLUCOSE - DIPSTICK >=1000 mg/dL (NEGATIVE); URINE KETONE NEGATIVE (NEGATIVE); URINE LEUK ESTERASE NEGATIVE (NEGATIVE); URINE NITRITE - DIPSTICK NEGATIVE (Negative); URINE PROTEIN - DIPSTICK 100 mg/dL (NEG-TRACE); URINE UROBILINOGEN - DIPSTICK 0.2 E.U./dL (0.2)
[2018-10-05 05:30] LABS: URINE RBC 0-2 RBC/hpf (0-5); URINE SQUAMOUS EPITHELIAL CELL FEW EPI/hpf (0-FEW); URINE WBC 0-2 WBC/hpf (0-5)
[2018-10-05 05:31] LABS: URINE HYALINE CAST FEW lpf (NONE-RARE)
[2018-10-05] MEDS ORDERED: NOVOLIN N100 UNIT/M SC (06:14)
[2018-10-05] MEDS ORDERED: NOVOLIN R100 UNIT/M SC (06:14)
[2018-10-05 06:23] VITALS: BP 116/84
[2018-10-06] MEDS ORDERED: TRAMADOL HCL50 MG PO (22:04)
[2018-10-06] MEDS ORDERED: VOLTAREN - GENE75 MG PO (22:04)
== END 2018-10-05 06:35 | disposition home or self-care (01) | DRG 639 ==
LOC: ED 03:41
PROVIDERS: Family Medicine
DX: E11.65 Type 2 diabetes mellitus with hyperglycemia (principal); I10 Essential (primary) hypertension; T38.3X6A Underdosing of insulin and oral hypoglycemic [antidiabetic] drugs, initial encounter; Z91.120 Patient's intentional underdosing of medication regimen due to financial hardship; Z79.4 Long term (current) use of insulin

== ENCOUNTER 2018-10-06 21:17 | Emergency (ER) | payer SELFPAY ==
[~2018-10-06] VITALS: Ht 190.5 cm; Wt 123.8 kg
[~2018-10-06 21:17] MED LIST changes: +NOVOLIN N100 UNIT/M SC; +NOVOLIN R100 UNIT/M SC
[2018-10-06] MEDS ORDERED: VOLTAREN - GENE75 MG PO (22:04)
[2018-10-06] MEDS ORDERED: TRAMADOL HCL50 MG PO (22:04)
[2018-10-06 22:20] VITALS: BP 173/83
== END 2018-10-06 22:20 | disposition home or self-care (01) | DRG 93 ==
LOC: ED 21:17
DX: G89.29 Other chronic pain (principal); M54.5 Low back pain; Y93.01 Activity, walking, marching and hiking; Y92.414 Local residential or business street as the place of occurrence of the external cause

== ENCOUNTER 2018-10-23 14:34 | Observation (INO) | payer SELFPAY ==
[~2018-10-23] VITALS: Ht 190.5 cm; Wt 125.0 kg
[2018-10-23 16:04] LABS: HEMATOCRIT 44.4 % (39.0-50.0); IMMATURE GRANULOCYTES 0.3 % (0.0-5.0); MEAN CELL VOLUME 86.5 fL CALC (80.0-100.0); MEAN CORPUSCULAR HGB 29.2 pG CALC (26.0-32.0); MEAN CORPUSCULAR HGB CONC 33.8 g/L CALC (32.0-36.0); NEUT# 6.06 thou/uL (1.82-7.42); RED BLOOD COUNT 5.13 mill/uL (4.70-6.10); RED CELL DISTRI WIDTH 13.2 % (11.5-15.5)
[2018-10-23 16:22] LABS: ALBUMIN 3.7 g/dL (3.2-5.0); ALKALINE PHOSPHATASE 136 u/l (38-126); ANION GAP 18 (6-22 (CALC)); BILIRUBIN, TOTAL 0.4 mg/dL (0.0-1.4); BUN 13 mg/dL (9-20); BUN/CREATININE RATIO 12 (12-20 (CALC)); CARBON DIOXIDE 22 mmol/l (22-30); CHLORIDE 100 mmol/l (95-108); CREATININE 1.1 mg/dL (0.7-1.3); GFR > 60 ML/MIN (>=60 (CALC)); GFR FOR AFR.AMER. > 60 ML/MIN (>=60 (CALC)); POTASSIUM 4.7 mmol/l (3.5-5.1); SGOT/AST 16 u/l (17-59); SODIUM 134 mmol/l (137-146); TOTAL PROTEIN 6.9 g/dL (6.3-8.2)
[2018-10-23 17:20] LABS: BARBITURATES NEGATIVE (NEGATIVE); COCAINE NEGATIVE (NEGATIVE); METHADONE NEGATIVE (NEGATIVE); OXCYCODONE NEGATIVE (NEGATIVE); TETRAHYDROCANNABIONOL NEGATIVE (NEGATIVE); TRICYLIC ANTIDEPRESSANTS NEGATIVE (NEGATIVE)
[2018-10-23] MEDS ORDERED: HYDROCODONE BIT1 TA7 PO (19:24)
[2018-10-23 19:51] VITALS: BP 151/87
[2018-10-24 04:10] VITALS: BP 129/68
[2018-10-24 05:20] LABS: CHOLESTEROL HDL RATIO 4.5 (<4.4 (CALC))
[2018-10-24 08:00] VITALS: BP 158/90
[2018-10-24] MEDS ORDERED: LEVEMIR100 UNIT/M SC (15:09)
[2018-10-24] MEDS ORDERED: INSULIN (15:11)
== END 2018-10-24 18:07 | disposition home or self-care (01) | DRG 639 ==
LOC: ED 14:34 → ED-I 17:31 → ED 18:30 → MS2 18:31
PROVIDERS: Emergency Medicine; ADMIT Internal Medicine; ATTEND Internal Medicine
DX: E11.65 Type 2 diabetes mellitus with hyperglycemia (principal); I10 Essential (primary) hypertension; G89.29 Other chronic pain; M54.5 Low back pain; T38.3X6A Underdosing of insulin and oral hypoglycemic [antidiabetic] drugs, initial encounter; Z91.120 Patient's intentional underdosing of medication regimen due to financial hardship; Z79.4 Long term (current) use of insulin; Z79.891 Long term (current) use of opiate analgesic
CPT/HCPCS: G0378

== ENCOUNTER 2018-11-01 22:39 | Emergency (ER) | payer BC ==
[~2018-11-01] VITALS: Ht 190.5 cm; Wt 122.7 kg
[~2018-11-01 22:39] MED LIST changes: +HYDROCODONE BIT1 TA7 PO; +INSULIN
[2018-11-02 02:15] VITALS: BP 162/88
[2018-11-02] MEDS ORDERED: TRAMADOL HCL50 MG PO (02:47)
== END 2018-11-02 03:06 | disposition home or self-care (01) | DRG 605 ==
LOC: ED 22:39
DX: S30.0XXA Contusion of lower back and pelvis, initial encounter (principal); E11.9 Type 2 diabetes mellitus without complications; I10 Essential (primary) hypertension; W19.XXXA Unspecified fall, initial encounter

== ENCOUNTER 2018-11-08 01:48 | Emergency (ER) | payer BC ==
[~2018-11-08] VITALS: Ht 190.5 cm; Wt 100.0 kg
[2018-11-08 04:00] VITALS: BP 151/92
== END 2018-11-08 04:15 | disposition home or self-care (01) | DRG 552 ==
LOC: ED 01:48
DX: M54.5 Low back pain (principal); G89.29 Other chronic pain; E11.9 Type 2 diabetes mellitus without complications; I10 Essential (primary) hypertension

== ENCOUNTER 2018-11-22 18:31 | Emergency (ER) | payer BC ==
[~2018-11-22] VITALS: Ht 190.5 cm; Wt 124.0 kg
[2018-11-22] MEDS ORDERED: ORPHENADRINE100 MG PO (23:55)
[2018-11-22] MEDS ORDERED: TORADOL PO (23:55)
[2018-11-23 01:15] VITALS: BP 158/70
== END 2018-11-23 01:19 | disposition home or self-care (01) | DRG 554 ==
LOC: ED 18:31
DX: M16.11 Unilateral primary osteoarthritis, right hip (principal); M54.5 Low back pain; G89.29 Other chronic pain; E11.9 Type 2 diabetes mellitus without complications; I10 Essential (primary) hypertension

== ENCOUNTER 2018-11-28 18:39 | Emergency (ER) | payer BC ==
[~2018-11-28] VITALS: Ht 190.5 cm; Wt 125.2 kg
[~2018-11-28 18:39] MED LIST changes: +ORPHENADRINE100 MG PO; +TORADOL PO
[2018-11-28] MEDS ORDERED: LEVEMIR100 UNIT/M SC (19:11)
[2018-11-28] MEDS ORDERED: NOVOLOG100 UNIT/M SC (19:16)
[2018-11-28] MEDS ORDERED: TRAMADOL HCL50 MG PO (19:20)
[2018-11-28 20:18] VITALS: BP 150/81
== END 2018-11-28 20:18 | disposition home or self-care (01) | DRG 552 ==
LOC: ED 18:39
DX: M54.5 Low back pain (principal); G89.29 Other chronic pain; E11.9 Type 2 diabetes mellitus without complications; I10 Essential (primary) hypertension

== ENCOUNTER 2018-12-07 18:16 | Emergency (ER) | payer BC ==
[~2018-12-07] VITALS: Ht 190.5 cm; Wt 123.6 kg
[~2018-12-07 18:16] MED LIST changes: +NOVOLOG100 UNIT/M SC
[2018-12-07 19:51] VITALS: BP 167/114
== END 2018-12-07 19:51 | disposition home or self-care (01) | DRG 552 ==
LOC: ED 18:16
DX: M54.5 Low back pain (principal); G89.29 Other chronic pain; E11.9 Type 2 diabetes mellitus without complications; I10 Essential (primary) hypertension

== ENCOUNTER 2018-12-10 15:45 | Emergency (ER) | payer BC ==
[~2018-12-10] VITALS: Ht 190.5 cm; Wt 122.0 kg
[2018-12-10] MEDS ORDERED: TRAMADOL HYDROC50 MG PO (16:06)
[2018-12-10 16:41] VITALS: BP 170/103
== END 2018-12-10 16:47 | disposition home or self-care (01) | DRG 563 ==
LOC: ED 15:45
DX: S39.012A Strain of muscle, fascia and tendon of lower back, initial encounter (principal); M51.26 Other intervertebral disc displacement, lumbar region; E11.9 Type 2 diabetes mellitus without complications; I10 Essential (primary) hypertension; X58.XXXA Exposure to other specified factors, initial encounter

== ENCOUNTER 2018-12-20 14:36 | Emergency (ER) | payer BC ==
[~2018-12-20] VITALS: Ht 190.5 cm; Wt 145.0 kg
[~2018-12-20 14:36] MED LIST changes: +TRAMADOL HYDROC50 MG PO
== END 2018-12-20 16:07 | disposition home or self-care (01) | DRG 93 ==
LOC: ED 14:36
DX: G89.29 Other chronic pain (principal); M54.5 Low back pain

== ENCOUNTER 2019-01-03 01:48 | Emergency (ER) | payer BC ==
[~2019-01-03] VITALS: Ht 190.5 cm; Wt 118.2 kg
[2019-01-03 02:22] VITALS: BP 182/92
== END 2019-01-03 02:22 | disposition home or self-care (01) | DRG 93 ==
LOC: ED 01:48
DX: G89.29 Other chronic pain (principal); M54.5 Low back pain; E11.9 Type 2 diabetes mellitus without complications; I10 Essential (primary) hypertension

== ENCOUNTER 2019-02-19 21:40 | Emergency (ER) | payer BC ==
[~2019-02-19] VITALS: Ht 190.5 cm; Wt 77.0 kg
[2019-02-19 23:07] LABS: HEMATOCRIT 44.3 % (39.0-50.0); HEMOGLOBIN 14.9 g/dl (14.0-18.0); IMMATURE GRANULOCYTES 0.5 % (0.0-5.0); MEAN CELL VOLUME 85.9 fL CALC (80.0-100.0); MEAN CORPUSCULAR HGB 28.9 pG CALC (26.0-32.0); MEAN CORPUSCULAR HGB CONC 33.6 g/L CALC (32.0-36.0); NEUT# 7.88 thou/uL (1.82-7.42); RED BLOOD COUNT 5.16 mill/uL (4.70-6.10); RED CELL DISTRI WIDTH 13.3 % (11.5-15.5)
[2019-02-19 23:08] LABS: URINE BILIRUBIN - DIPSTICK NEGATIVE (NEGATIVE); URINE BLOOD DIPSTICK NEGATIVE (NEGATIVE); URINE COLOR YELLOW; URINE GLUCOSE - DIPSTICK >=1000 mg/dL (NEGATIVE); URINE KETONE NEGATIVE (NEGATIVE); URINE LEUK ESTERASE NEGATIVE (NEGATIVE); URINE NITRITE - DIPSTICK NEGATIVE (Negative); URINE PROTEIN - DIPSTICK 100 mg/dL (NEG-TRACE); URINE SPECIFIC GRAVITY <=1.005; URINE UROBILINOGEN - DIPSTICK 0.2 E.U./dL (0.2)
[2019-02-19 23:20] LABS: ALBUMIN 3.6 g/dL (3.2-5.0); ALKALINE PHOSPHATASE 161 u/l (38-126); ANION GAP 16 (6-22 (CALC)); BILIRUBIN, TOTAL 0.5 mg/dL (0.0-1.4); BUN 19 mg/dL (9-20); BUN/CREATININE RATIO 15 (12-20 (CALC)); CARBON DIOXIDE 20 mmol/l (22-30); CHLORIDE 100 mmol/l (95-108); CREATININE 1.3 mg/dL (0.7-1.3); GFR > 60 ML/MIN (>=60 (CALC)); GFR FOR AFR.AMER. > 60 ML/MIN (>=60 (CALC)); POTASSIUM 4.5 mmol/l (3.5-5.1); SGOT/AST 21 u/l (17-59); SODIUM 131 mmol/l (137-146)
[2019-02-19 23:35] LABS: URINE BACTERIA RARE hpf; URINE RBC 0-2 RBC/hpf (0-5); URINE SQUAMOUS EPITHELIAL CELL RARE EPI/hpf (0-FEW)
[2019-02-20] VITALS: BP 138/76
== END 2019-02-20 00:10 | disposition home or self-care (01) | DRG 639 ==
LOC: ED 21:40
PROVIDERS: Family Medicine
DX: E11.65 Type 2 diabetes mellitus with hyperglycemia (principal); I10 Essential (primary) hypertension; Z79.4 Long term (current) use of insulin

== ENCOUNTER 2019-04-10 16:03 | Emergency (ER) | payer BC ==
[~2019-04-10] VITALS: Ht 190.5 cm; Wt 118.2 kg
[2019-04-10 17:03] LABS: HEMATOCRIT 42.4 % (39.0-50.0); HEMOGLOBIN 14.1 g/dl (14.0-18.0); IMMATURE GRANULOCYTES 0.4 % (0.0-5.0); MEAN CELL VOLUME 86.9 fL CALC (80.0-100.0); MEAN CORPUSCULAR HGB 28.9 pG CALC (26.0-32.0); MEAN CORPUSCULAR HGB CONC 33.3 g/L CALC (32.0-36.0); NEUT# 7.22 thou/uL (1.82-7.42); RED BLOOD COUNT 4.88 mill/uL (4.70-6.10); RED CELL DISTRI WIDTH 13.5 % (11.5-15.5)
[2019-04-10 17:59] LABS: ALBUMIN 3.4 g/dL (3.2-5.0); ALKALINE PHOSPHATASE 137 u/l (38-126); ANION GAP 12 (6-22 (CALC)); BILIRUBIN, TOTAL 0.4 mg/dL (0.0-1.4); BUN 15 mg/dL (9-20); BUN/CREATININE RATIO 13 (12-20 (CALC)); CHLORIDE 104 mmol/l (95-108); CREATININE 1.1 mg/dL (0.7-1.3); GFR > 60 ML/MIN (>=60 (CALC)); GFR FOR AFR.AMER. > 60 ML/MIN (>=60 (CALC)); POTASSIUM 4.1 mmol/l (3.5-5.1); SGOT/AST 16 u/l (17-59); SODIUM 137 mmol/l (137-146); TOTAL PROTEIN 6.7 g/dL (6.3-8.2)
[2019-04-10 18:00] LABS: CARBON DIOXIDE 25 mmol/l (22-30)
[2019-04-10] MEDS ORDERED: LISINOPRIL20 MG PO (18:19)
[2019-04-10 18:27] VITALS: BP 140/77
== END 2019-04-10 18:39 | disposition home or self-care (01) | DRG 305 ==
LOC: ED 16:03
PROVIDERS: Emergency Medicine
DX: I10 Essential (primary) hypertension (principal); E11.9 Type 2 diabetes mellitus without complications

== ENCOUNTER 2019-04-15 00:24 | Emergency (ER) | payer BC ==
[~2019-04-15] VITALS: Ht 190.5 cm; Wt 127.3 kg
[~2019-04-15 00:24] MED LIST changes: +LISINOPRIL20 MG PO
[2019-04-15 00:44] VITALS: BP 182/101
== END 2019-04-15 00:48 | disposition home or self-care (01) | DRG 93 ==
LOC: ED 00:24
DX: G89.29 Other chronic pain (principal); M54.5 Low back pain; I10 Essential (primary) hypertension; E11.9 Type 2 diabetes mellitus without complications; Z79.4 Long term (current) use of insulin

== ENCOUNTER 2019-05-09 15:34 | Emergency (ER) | payer BC ==
[~2019-05-09] VITALS: Ht 190.5 cm; Wt 150.0 kg
[2019-05-09] MEDS ORDERED: GABAPENTIN300 M2 PO (15:46)
[2019-05-09 17:10] LABS: ALBUMIN 3.1 g/dL (3.2-5.0); ALKALINE PHOSPHATASE 105 u/l (38-126); ANION GAP 10 (6-22 (CALC)); BILIRUBIN, TOTAL 0.3 mg/dL (0.0-1.4); BUN 25 mg/dL (9-20); BUN/CREATININE RATIO 20 (12-20 (CALC)); CARBON DIOXIDE 27 mmol/l (22-30); CHLORIDE 108 mmol/l (95-108); CREATININE 1.3 mg/dL (0.7-1.3); GFR > 60 ML/MIN (>=60 (CALC)); GFR FOR AFR.AMER. > 60 ML/MIN (>=60 (CALC)); POTASSIUM 4.8 mmol/l (3.5-5.1); SGOT/AST 18 u/l (17-59); SODIUM 140 mmol/l (137-146); TOTAL PROTEIN 6.1 g/dL (6.3-8.2)
[2019-05-09] MEDS ORDERED: FLEXERIL PO (17:14)
[2019-05-09 17:36] VITALS: BP 126/75
== END 2019-05-09 17:46 | disposition home or self-care (01) | DRG 948 ==
LOC: ED 15:34
PROVIDERS: Emergency Medicine
DX: G89.18 Other acute postprocedural pain (principal); M54.5 Low back pain; E11.65 Type 2 diabetes mellitus with hyperglycemia; I10 Essential (primary) hypertension; Z79.4 Long term (current) use of insulin

== ENCOUNTER 2019-05-26 22:07 | Emergency (ER) | payer BC ==
[~2019-05-26] VITALS: Ht 190.5 cm; Wt 127.0 kg
[~2019-05-26 22:07] MED LIST changes: +GABAPENTIN300 M2 PO
[2019-05-26 23:50] VITALS: BP 142/82
== END 2019-05-26 23:47 | disposition home or self-care (01) | DRG 552 ==
LOC: ED 22:07
DX: M54.5 Low back pain (principal); E11.9 Type 2 diabetes mellitus without complications; I10 Essential (primary) hypertension; W18.30XA Fall on same level, unspecified, initial encounter; Y92.009 Unspecified place in unspecified non-institutional (private) residence as the place of occurrence of the external cause; Z98.1 Arthrodesis status; Z79.4 Long term (current) use of insulin

== ENCOUNTER 2019-06-09 18:48 | Emergency (ER) | payer BC ==
[~2019-06-09] VITALS: Ht 190.5 cm; Wt 122.7 kg
[2019-06-09 20:00] VITALS: BP 148/73
[2019-06-09 20:05] LABS: HEMATOCRIT 40.6 % (39.0-50.0); HEMOGLOBIN 13.2 g/dl (14.0-18.0); IMMATURE GRANULOCYTES 0.4 % (0.0-5.0); MEAN CELL VOLUME 85.8 fL CALC (80.0-100.0); MEAN CORPUSCULAR HGB 27.9 pG CALC (26.0-32.0); MEAN CORPUSCULAR HGB CONC 32.5 g/L CALC (32.0-36.0); NEUT# 7.26 thou/uL (1.82-7.42); RED BLOOD COUNT 4.73 mill/uL (4.70-6.10); RED CELL DISTRI WIDTH 13.2 % (11.5-15.5)
[2019-06-09 20:21] LABS: ALBUMIN 3.6 g/dL (3.2-5.0); BILIRUBIN, TOTAL 0.4 mg/dL (0.0-1.4); CREATININE 1.7 mg/dL (0.7-1.3); POTASSIUM 4.4 mmol/l (3.5-5.1); TOTAL PROTEIN 7.2 g/dL (6.3-8.2)
[2019-06-10] MEDS ORDERED: ULTRAM50 M1 PO (03:38)
[2019-06-10] MEDS ORDERED: FLEXERIL PO (03:38)
== END 2019-06-09 20:00 | disposition left against medical advice (07) | DRG 93 ==
LOC: ED 18:48
DX: G89.29 Other chronic pain (principal); M54.5 Low back pain; I10 Essential (primary) hypertension; E11.65 Type 2 diabetes mellitus with hyperglycemia; Z79.4 Long term (current) use of insulin; Z91.19 Patient's noncompliance with other medical treatment and regimen; Z98.890 Other specified postprocedural states

== ENCOUNTER 2019-06-10 01:05 | Emergency (ER) | payer BC ==
[~2019-06-10] VITALS: Ht 190.5 cm; Wt 110.0 kg
[2019-06-10 01:32] LABS: HEMATOCRIT 39.4 % (39.0-50.0); HEMOGLOBIN 13.1 g/dl (14.0-18.0); IMMATURE GRANULOCYTES 0.3 % (0.0-5.0); MEAN CORPUSCULAR HGB 28.6 pG CALC (26.0-32.0); MEAN CORPUSCULAR HGB CONC 33.2 g/L CALC (32.0-36.0); NEUT# 7.12 thou/uL (1.82-7.42); RED BLOOD COUNT 4.58 mill/uL (4.70-6.10); RED CELL DISTRI WIDTH 13.4 % (11.5-15.5)
[2019-06-10 01:44] LABS: ALBUMIN 3.5 g/dL (3.2-5.0); BILIRUBIN, TOTAL 0.4 mg/dL (0.0-1.4); CREATININE 1.6 mg/dL (0.7-1.3); POTASSIUM 4.3 mmol/l (3.5-5.1)
[2019-06-10 02:00] LABS: URINE BILIRUBIN - DIPSTICK NEGATIVE (NEGATIVE); URINE BLOOD DIPSTICK TRACE-LYSED (NEGATIVE); URINE COLOR YELLOW; URINE GLUCOSE - DIPSTICK >=1000 mg/dL (NEGATIVE); URINE KETONE NEGATIVE (NEGATIVE); URINE LEUK ESTERASE NEGATIVE (NEGATIVE); URINE NITRITE - DIPSTICK NEGATIVE (Negative); URINE PH 5.5 (4.5-8.0); URINE PROTEIN - DIPSTICK 100 mg/dL (NEG-TRACE); URINE UROBILINOGEN - DIPSTICK 0.2 E.U./dL (0.2)
[2019-06-10 02:11] LABS: URINE WBC 0-2 WBC/hpf (0-5)
[2019-06-10 02:12] LABS: BARBITURATES NEGATIVE (NEGATIVE); COCAINE NEGATIVE (NEGATIVE); METHADONE NEGATIVE (NEGATIVE); OXCYCODONE NEGATIVE (NEGATIVE); TETRAHYDROCANNABIONOL NEGATIVE (NEGATIVE); TRICYLIC ANTIDEPRESSANTS NEGATIVE (NEGATIVE); URINE BACTERIA RARE hpf; URINE SQUAMOUS EPITHELIAL CELL FEW EPI/hpf (0-FEW)
[2019-06-10 03:06] VITALS: BP 118/60
[2019-06-10] MEDS ORDERED: ULTRAM50 M1 PO (03:38)
[2019-06-10] MEDS ORDERED: FLEXERIL PO (03:38)
== END 2019-06-10 03:56 | disposition home or self-care (01) | DRG 639 ==
LOC: ED 01:05
PROVIDERS: Emergency Medicine
DX: E11.65 Type 2 diabetes mellitus with hyperglycemia (principal); M51.86 Other intervertebral disc disorders, lumbar region; I10 Essential (primary) hypertension; Z79.4 Long term (current) use of insulin

== ENCOUNTER 2019-07-27 12:58 | Emergency (ER) | payer BC ==
[~2019-07-27] VITALS: Ht 190.5 cm; Wt 110.0 kg
[2019-07-27 14:05] VITALS: BP 172/110
== END 2019-07-27 14:05 | disposition home or self-care (01) | DRG 93 ==
LOC: ED 12:58
DX: G89.29 Other chronic pain (principal); M54.5 Low back pain; S76.011A Strain of muscle, fascia and tendon of right hip, initial encounter; I10 Essential (primary) hypertension; E11.8 Type 2 diabetes mellitus with unspecified complications; X58.XXXA Exposure to other specified factors, initial encounter; Z79.4 Long term (current) use of insulin; Z98.1 Arthrodesis status

== ENCOUNTER 2019-08-13 21:36 | Emergency (ER) | payer BC ==
[~2019-08-13] VITALS: Ht 190.5 cm; Wt 110.0 kg
[2019-08-13 22:35] LABS: HEMATOCRIT 47.3 % (39.0-50.0); HEMOGLOBIN 15.7 g/dl (14.0-18.0); IMMATURE GRANULOCYTES 0.3 % (0.0-5.0); MEAN CELL VOLUME 83.7 fL CALC (80.0-100.0); MEAN CORPUSCULAR HGB 27.8 pG CALC (26.0-32.0); MEAN CORPUSCULAR HGB CONC 33.2 g/L CALC (32.0-36.0); NEUT# 8.53 thou/uL (1.82-7.42); RED BLOOD COUNT 5.65 mill/uL (4.70-6.10); RED CELL DISTRI WIDTH 13.6 % (11.5-15.5)
[2019-08-13 22:45] LABS: URINE BILIRUBIN - DIPSTICK NEGATIVE (NEGATIVE); URINE BLOOD DIPSTICK TRACE-INTACT (NEGATIVE); URINE COLOR YELLOW; URINE GLUCOSE - DIPSTICK >=1000 mg/dL (NEGATIVE); URINE KETONE NEGATIVE (NEGATIVE); URINE LEUK ESTERASE NEGATIVE (NEGATIVE); URINE NITRITE - DIPSTICK NEGATIVE (Negative); URINE PH 6.5 (4.5-8.0); URINE PROTEIN - DIPSTICK 100 mg/dL (NEG-TRACE); URINE UROBILINOGEN - DIPSTICK 0.2 E.U./dL (0.2)
[2019-08-13 22:46] LABS: BARBITURATES NEGATIVE (NEGATIVE); COCAINE NEGATIVE (NEGATIVE); METHADONE NEGATIVE (NEGATIVE); OXCYCODONE NEGATIVE (NEGATIVE); TETRAHYDROCANNABIONOL NEGATIVE (NEGATIVE); TRICYLIC ANTIDEPRESSANTS NEGATIVE (NEGATIVE)
[2019-08-13 22:50] LABS: URINE RBC 0-2 RBC/hpf (0-5); URINE WBC 0-2 WBC/hpf (0-5)
[2019-08-13 22:57] LABS: ALBUMIN 3.8 g/dL (3.2-5.0); ALKALINE PHOSPHATASE 185 u/l (38-126); ANION GAP 15 (6-22 (CALC)); BILIRUBIN, TOTAL 0.4 mg/dL (0.0-1.4); BUN 18 mg/dL (9-20); BUN/CREATININE RATIO 15 (12-20 (CALC)); CARBON DIOXIDE 24 mmol/l (22-30); CHLORIDE 101 mmol/l (95-108); CREATININE 1.2 mg/dL (0.7-1.3); GFR > 60 ML/MIN (>=60 (CALC)); GFR FOR AFR.AMER. > 60 ML/MIN (>=60 (CALC)); POTASSIUM 4.3 mmol/l (3.5-5.1); SGOT/AST 20 u/l (17-59); SODIUM 136 mmol/l (137-146); TOTAL PROTEIN 7.5 g/dL (6.3-8.2)
[2019-08-14] MEDS ORDERED: NOVOLOG100 UNIT/M SC (01:06)
[2019-08-14] MEDS ORDERED: CLONIDINE0.1 MG PO (01:06)
[2019-08-14 01:11] VITALS: BP 150/87
== END 2019-08-14 01:50 | disposition home or self-care (01) | DRG 639 ==
LOC: ED 21:36
PROVIDERS: Emergency Medicine
DX: E11.65 Type 2 diabetes mellitus with hyperglycemia (principal); I10 Essential (primary) hypertension; T38.3X6A Underdosing of insulin and oral hypoglycemic [antidiabetic] drugs, initial encounter; Z79.4 Long term (current) use of insulin; Z91.120 Patient's intentional underdosing of medication regimen due to financial hardship

== ENCOUNTER 2019-09-03 19:28 | Observation (INO) | payer SELFPAY ==
[~2019-09-03] VITALS: Ht 190.5 cm; Wt 119.0 kg
[~2019-09-03 19:28] MED LIST changes: +CLONIDINE0.1 MG PO
--- NOTE | 2019-09-03 19:45 | NUR ---
PT. TO ROOM 8 WIR[facility] C/O DIZZINESS X 2 DAYS AND A RECTAL BLEED STARTING THIS PM. ABD. SOFT WITH + BOWEL SOUNDS.
--- NOTE | 2019-09-03 20:22 | NUR ---
INSULIN GIVEN PER MD ORDER.
[2019-09-03 20:34] LABS: HEMATOCRIT 42.3 % (39.0-50.0); IMMATURE GRANULOCYTES 0.4 % (0.0-5.0); MEAN CELL VOLUME 84.3 fL CALC (80.0-100.0); MEAN CORPUSCULAR HGB 27.9 pG CALC (26.0-32.0); MEAN CORPUSCULAR HGB CONC 33.1 g/L CALC (32.0-36.0); NEUT# 5.25 thou/uL (1.82-7.42); RED BLOOD COUNT 5.02 mill/uL (4.70-6.10); RED CELL DISTRI WIDTH 14.1 % (11.5-15.5)
[2019-09-03 20:47] LABS: ALBUMIN 3.3 g/dL (3.2-5.0); ALKALINE PHOSPHATASE 130 u/l (38-126); ANION GAP 14 (6-22 (CALC)); BILIRUBIN, TOTAL 0.5 mg/dL (0.0-1.4); BUN 17 mg/dL (9-20); BUN/CREATININE RATIO 12 (12-20 (CALC)); CARBON DIOXIDE 23 mmol/l (22-30); CHLORIDE 103 mmol/l (95-108); CREATININE 1.4 mg/dL (0.7-1.3); GFR 56 ML/MIN (>=60 (CALC)); GFR FOR AFR.AMER. > 60 ML/MIN (>=60 (CALC)); POTASSIUM 4.6 mmol/l (3.5-5.1); SGOT/AST 14 u/l (17-59); SODIUM 136 mmol/l (137-146); TOTAL PROTEIN 6.8 g/dL (6.3-8.2)
[2019-09-03 20:53] LABS: ACT PARTIAL THROMBO TIME 24.9 SECONDS (20.0-32.5)
--- NOTE | 2019-09-03 21:40 | NUR ---
ACCU CHECK 317, MD AWARE.
--- NOTE | 2019-09-03 21:49 | NUR ---
IN ROOM TO DISCUSS CLINICAL FINDINGS WITH PT. VERBALIZED UNDERSTANDING. PT. ALSO MADE AWARE OF ADMISSION.
--- NOTE | 2019-09-03 22:19 | NUR ---
Admission Note Report Given to: STEFANI RN Transported by: Wheelchair X Stretcher Transported with: X Nurse Transporter X Patent IV O2 Construction Administrator
--- NOTE | 2019-09-03 22:35 | NUR ---
IV PROTONIX AND PO ANTIHYPERTENSIVE GIVEN PER MD ORDER.
--- NOTE | 2019-09-03 23:24 | NUR ---
BP NOW 142/85. AWARE.
--- NOTE | 2019-09-03 23:30 | NUR ---
PT. TAKEN TO [facility] FLOOR VIA STRETCHER, NO C/O.
[2019-09-03 23:53] VITALS: BP 155/88
--- NOTE | 2019-09-04 04:11 | NUR ---
PT RESTING IN BED. RESPIRATIONS EVEN AND UNLABORED ON RA. NO S/S OF DISTRESS AT THIS TIME. SAFETY PRECAUTIONS IN PLACE. WILL CONTINUE TO MONITOR.
[2019-09-04 05:08] VITALS: BP 120/82
--- NOTE | 2019-09-04 07:00 | NUR ---
SHIFT CHANGE REPORT, PT AWAKE ALERT AND ORIENTED RESTING IN BED, DENIES PAIN OR ANY OTHER DISCOMFORT, STATES HE HAS NOT BLED SINCE LAST NIGHT, IVF INFUSING, CALL [facility] IN REACH.
[2019-09-04 07:37] VITALS: BP 156/80
[2019-09-04] MEDS ORDERED: AMLODIPINE BESYL5 MG PO (12:43)
[2019-09-04 13:57] LABS: HEMATOCRIT 39.6 % (39.0-50.0); HEMOGLOBIN 13.1 g/dl (14.0-18.0)
[2019-09-04 15:46] VITALS: BP 134/67
[2019-09-04 17:36] LABS: URINE BILIRUBIN - DIPSTICK NEGATIVE (NEGATIVE); URINE BLOOD DIPSTICK NEGATIVE (NEGATIVE); URINE COLOR YELLOW; URINE GLUCOSE - DIPSTICK >=1000 mg/dL (NEGATIVE); URINE KETONE NEGATIVE (NEGATIVE); URINE LEUK ESTERASE NEGATIVE (NEGATIVE); URINE NITRITE - DIPSTICK NEGATIVE (Negative); URINE PROTEIN - DIPSTICK 100 mg/dL (NEG-TRACE); URINE SPECIFIC GRAVITY >=1.030; URINE UROBILINOGEN - DIPSTICK 0.2 E.U./dL (0.2)
[2019-09-04 17:37] LABS: URINE RBC 0-2 RBC/hpf (0-5); URINE WBC 0-2 WBC/hpf (0-5)
--- NOTE | 2019-09-04 18:31 | NUR ---
Discharge instructions given. Patient verbalizes understanding of same. Discharged in fair condition via Ambulatory to Home with friend. All belongings sent with pt.
== END 2019-09-04 18:40 | disposition home or self-care (01) | DRG 379 ==
LOC: ED 19:28 → MS2 21:55
PROVIDERS: Family Medicine; Internal Medicine; ADMIT Internal Medicine; ATTEND Internal Medicine
DX: K62.5 Hemorrhage of anus and rectum (principal); E11.65 Type 2 diabetes mellitus with hyperglycemia; I10 Essential (primary) hypertension; R94.4 Abnormal results of kidney function studies; Z79.4 Long term (current) use of insulin
CPT/HCPCS: G0378; Q9967; S0164

== ENCOUNTER 2019-09-12 18:45 | Emergency (ER) | payer SELFPAY ==
[~2019-09-12] VITALS: Ht 190.5 cm; Wt 116.0 kg
[~2019-09-12 18:45] MED LIST changes: +AMLODIPINE BESYL5 MG PO
[2019-09-12 19:55] LABS: HEMATOCRIT 42.5 % (39.0-50.0); HEMOGLOBIN 14.3 g/dl (14.0-18.0); IMMATURE GRANULOCYTES 0.3 % (0.0-5.0); MEAN CELL VOLUME 83.5 fL CALC (80.0-100.0); MEAN CORPUSCULAR HGB 28.1 pG CALC (26.0-32.0); MEAN CORPUSCULAR HGB CONC 33.6 g/L CALC (32.0-36.0); NEUT# 6.76 thou/uL (1.82-7.42); RED BLOOD COUNT 5.09 mill/uL (4.70-6.10); RED CELL DISTRI WIDTH 14.2 % (11.5-15.5)
[2019-09-12 20:24] LABS: AMYLASE 54 u/l (30-110); LIPASE 237 u/l (23-300)
[2019-09-12 21:09] LABS: ALBUMIN 3.4 g/dL (3.2-5.0); BILIRUBIN, TOTAL 0.4 mg/dL (0.0-1.4); CREATININE 1.6 mg/dL (0.7-1.3); POTASSIUM 4.3 mmol/l (3.5-5.1); TOTAL PROTEIN 6.9 g/dL (6.3-8.2)
[2019-09-12 21:50] LABS: URINE BILIRUBIN - DIPSTICK NEGATIVE (NEGATIVE); URINE BLOOD DIPSTICK NEGATIVE (NEGATIVE); URINE COLOR YELLOW; URINE GLUCOSE - DIPSTICK >=1000 mg/dL (NEGATIVE); URINE KETONE NEGATIVE (NEGATIVE); URINE LEUK ESTERASE NEGATIVE (NEGATIVE); URINE NITRITE - DIPSTICK NEGATIVE (Negative); URINE PH 5.5 (4.5-8.0); URINE PROTEIN - DIPSTICK 100 mg/dL (NEG-TRACE); URINE SPECIFIC GRAVITY 1.025; URINE UROBILINOGEN - DIPSTICK 0.2 E.U./dL (0.2)
[2019-09-12 21:52] LABS: URINE SQUAMOUS EPITHELIAL CELL FEW EPI/hpf (0-FEW)
[2019-09-13 03:51] VITALS: BP 138/79
== END 2019-09-13 02:30 | disposition home or self-care (01) | DRG 552 ==
LOC: ED 18:45
PROVIDERS: Emergency Medicine
DX: M54.5 Low back pain (principal); E11.65 Type 2 diabetes mellitus with hyperglycemia; I10 Essential (primary) hypertension; Z79.4 Long term (current) use of insulin

== ENCOUNTER 2019-10-28 | Emergency (ER) | payer SELFPAY ==
[2019-10-28 22:57] LABS: HEMOGLOBIN 14.7 g/dl (14.0-18.0); IMMATURE GRANULOCYTES 0.7 % (0.0-5.0); MEAN CELL VOLUME 85.3 fL CALC (80.0-100.0); MEAN CORPUSCULAR HGB 28.5 pG CALC (26.0-32.0); MEAN CORPUSCULAR HGB CONC 33.4 g/L CALC (32.0-36.0); NEUT# 8.46 thou/uL (1.82-7.42); RED BLOOD COUNT 5.16 mill/uL (4.70-6.10); RED CELL DISTRI WIDTH 13.7 % (11.5-15.5)
[2019-10-28 23:12] LABS: ALBUMIN 3.6 g/dL (3.2-5.0); ALKALINE PHOSPHATASE 176 u/l (38-126); ANION GAP 17 (6-22 (CALC)); BILIRUBIN, TOTAL 0.4 mg/dL (0.0-1.4); BUN 15 mg/dL (9-20); BUN/CREATININE RATIO 13 (12-20 (CALC)); CARBON DIOXIDE 17 mmol/l (22-30); CHLORIDE 102 mmol/l (95-108); CREATININE 1.2 mg/dL (0.7-1.3); GFR > 60 ML/MIN (>=60 (CALC)); GFR FOR AFR.AMER. > 60 ML/MIN (>=60 (CALC)); POTASSIUM 4.7 mmol/l (3.5-5.1); SGOT/AST 19 u/l (17-59); SODIUM 131 mmol/l (137-146); TOTAL PROTEIN 7.4 g/dL (6.3-8.2)
[2019-10-29] MEDS ORDERED: FLEXERIL PO (00:37)
[2019-10-29] MEDS ORDERED: TRAMADOL HYDROC50 MG PO (00:37)
[2020-04-01] MEDS ORDERED: VOLTAREN - GENE75 MG PO (03:30)
[2020-04-01] MEDS ORDERED: ORPHENADRINE100 MG PO (03:30)
[2020-06-03] MEDS ORDERED: FLEXERIL PO (01:53)
[2020-06-03] MEDS ORDERED: NAPROXEN500 MG PO (01:53)
[2020-06-21] MEDS ORDERED: TORADOL PO ×2 (02:37→13:49)
[2020-06-21] MEDS ORDERED: ORPHENADRINE100 MG PO ×2 (02:37→13:49)
== END 2019-10-29 01:50 | disposition home or self-care (01) | DRG 552 ==
DX: M54.5 Low back pain (principal); E11.65 Type 2 diabetes mellitus with hyperglycemia; I10 Essential (primary) hypertension; T38.3X6A Underdosing of insulin and oral hypoglycemic [antidiabetic] drugs, initial encounter; Z91.138 Patient's unintentional underdosing of medication regimen for other reason; Z79.4 Long term (current) use of insulin

== ENCOUNTER 2020-03-18 17:45 | Emergency (ER) | payer SELFPAY ==
[~2020-03-18] VITALS: Ht 190.5 cm; Wt 114.0 kg
[2020-03-18 19:05] LABS: HEMATOCRIT 46.5 % (39.0-50.0); HEMOGLOBIN 15.9 g/dl (14.0-18.0); IMMATURE GRANULOCYTES 0.4 % (0.0-5.0); MEAN CELL VOLUME 83.8 fL CALC (80.0-100.0); MEAN CORPUSCULAR HGB 28.6 pG CALC (26.0-32.0); MEAN CORPUSCULAR HGB CONC 34.2 g/dL CAL (32.0-36.0); NEUT# 8.58 thou/uL (1.82-7.42); RED BLOOD COUNT 5.55 mill/uL (4.70-6.10); RED CELL DISTRI WIDTH 13.4 % (11.5-15.5)
[2020-03-18 19:12] LABS: ALBUMIN 3.8 g/dL (3.2-5.0); ALKALINE PHOSPHATASE 176 u/l (38-126); ANION GAP 17 (6-22 (CALC)); BILIRUBIN, TOTAL 0.5 mg/dL (0.0-1.4); BUN 15 mg/dL (9-20); BUN/CREATININE RATIO 10 (12-20 (CALC)); CHLORIDE 95 mmol/l (95-108); CREATININE 1.5 mg/dL (0.7-1.3); GFR 51 ML/MIN (>=60 (CALC)); GFR FOR AFR.AMER. > 60 ML/MIN (>=60 (CALC)); POTASSIUM 4.9 mmol/l (3.5-5.1); SGOT/AST 17 u/l (17-59); SODIUM 128 mmol/l (137-146); TOTAL PROTEIN 7.4 g/dL (6.3-8.2)
[2020-03-18 19:20] LABS: CARBON DIOXIDE 21 mmol/l (22-30)
[2020-03-18 20:01] LABS: URINE BILIRUBIN - DIPSTICK NEGATIVE (NEGATIVE); URINE BLOOD DIPSTICK NEGATIVE (NEGATIVE); URINE COLOR YELLOW; URINE GLUCOSE - DIPSTICK >=1000 mg/dL (NEGATIVE); URINE KETONE NEGATIVE (NEGATIVE); URINE LEUK ESTERASE NEGATIVE (NEGATIVE); URINE NITRITE - DIPSTICK NEGATIVE (Negative); URINE PROTEIN - DIPSTICK 100 mg/dL (NEG-TRACE); URINE SPECIFIC GRAVITY 1.025; URINE UROBILINOGEN - DIPSTICK 0.2 E.U./dL (0.2)
[2020-03-18 20:09] LABS: URINE RBC 0-2 RBC/hpf (0-5); URINE WBC 0-2 WBC/hpf (0-5)
[2020-03-18] MEDS ORDERED: NOVOLIN N100 UNIT/1 SC (20:35)
[2020-03-18 21:00] VITALS: BP 168/97
== END 2020-03-18 21:30 | disposition home or self-care (01) | DRG 639 ==
LOC: ED 17:45
PROVIDERS: Emergency Medicine
DX: E11.65 Type 2 diabetes mellitus with hyperglycemia (principal); I10 Essential (primary) hypertension; T38.3X6A Underdosing of insulin and oral hypoglycemic [antidiabetic] drugs, initial encounter; Z91.128 Patient's intentional underdosing of medication regimen for other reason; Z79.4 Long term (current) use of insulin

== ENCOUNTER 2020-03-31 17:27 | Emergency (ER) | payer SELFPAY ==
[~2020-03-31] VITALS: Ht 190.5 cm; Wt 110.0 kg
[~2020-03-31 17:27] MED LIST changes: +NOVOLIN N100 UNIT/1 SC
[2020-03-31] MEDS ORDERED: ULTRAM50 MG PO (18:04)
[2020-03-31 18:24] VITALS: BP 137/75
[2020-04-01] MEDS ORDERED: ORPHENADRINE100 MG PO ×2 (03:30)
[2020-04-01] MEDS ORDERED: VOLTAREN - GENE75 MG PO ×2 (03:30)
== END 2020-03-31 18:29 | disposition home or self-care (01) | DRG 552 ==
LOC: ED 17:27
DX: M54.5 Low back pain (principal); G89.29 Other chronic pain; E11.9 Type 2 diabetes mellitus without complications; I10 Essential (primary) hypertension; Z79.4 Long term (current) use of insulin

== ENCOUNTER 2020-04-01 01:14 | Emergency (ER) | payer SELFPAY ==
[~2020-04-01] VITALS: Ht 190.5 cm; Wt 116.0 kg
[~2020-04-01 01:14] MED LIST changes: +ULTRAM50 MG PO
[2020-04-01 02:09] LABS: BUN 20 mg/dL (9-20); BUN/CREATININE RATIO 13 (12-20 (CALC)); CARBON DIOXIDE 17 mmol/l (22-30); CREATININE 1.5 mg/dL (0.7-1.3); GFR 51 ML/MIN (>=60 (CALC)); GFR FOR AFR.AMER. > 60 ML/MIN (>=60 (CALC)); SODIUM 134 mmol/l (137-146)
[2020-04-01 02:14] LABS: ANION GAP 13 (6-22 (CALC)); CHLORIDE 108 mmol/l (95-108); POTASSIUM 3.9 mmol/l (3.5-5.1)
[2020-04-01 03:30] VITALS: BP 156/83
[2020-04-01] MEDS ORDERED: ORPHENADRINE100 MG PO ×2 (03:30)
[2020-04-01] MEDS ORDERED: VOLTAREN - GENE75 MG PO ×2 (03:30)
== END 2020-04-01 03:30 | disposition home or self-care (01) | DRG 605 ==
LOC: ED 01:14
PROVIDERS: Family Medicine
DX: S30.0XXA Contusion of lower back and pelvis, initial encounter (principal); E11.65 Type 2 diabetes mellitus with hyperglycemia; I10 Essential (primary) hypertension; Y04.0XXA Assault by unarmed brawl or fight, initial encounter; Y92.009 Unspecified place in unspecified non-institutional (private) residence as the place of occurrence of the external cause; Z79.4 Long term (current) use of insulin

== ENCOUNTER 2020-04-25 21:27 | Emergency (ER) | payer SELFPAY ==
[~2020-04-25] VITALS: Ht 190.5 cm; Wt 71.0 kg
[2020-04-25 22:16] LABS: HEMATOCRIT 44.6 % (39.0-50.0); HEMOGLOBIN 14.8 g/dl (14.0-18.0); IMMATURE GRANULOCYTES 0.3 % (0.0-5.0); MEAN CELL VOLUME 86.8 fL CALC (80.0-100.0); MEAN CORPUSCULAR HGB 28.8 pG CALC (26.0-32.0); MEAN CORPUSCULAR HGB CONC 33.2 g/dL CAL (32.0-36.0); NEUT# 6.66 thou/uL (1.82-7.42); RED BLOOD COUNT 5.14 mill/uL (4.70-6.10); RED CELL DISTRI WIDTH 13.2 % (11.5-15.5)
[2020-04-25 22:26] LABS: ALBUMIN 3.6 g/dL (3.2-5.0); ALKALINE PHOSPHATASE 144 u/l (38-126); BILIRUBIN, TOTAL 0.5 mg/dL (0.0-1.4); BUN 22 mg/dL (9-20); BUN/CREATININE RATIO 16 (12-20 (CALC)); CHLORIDE 98 mmol/l (95-108); CREATININE 1.3 mg/dL (0.7-1.3); GFR 60 ML/MIN (>=60 (CALC)); GFR FOR AFR.AMER. > 60 ML/MIN (>=60 (CALC)); SGOT/AST 19 u/l (17-59); SODIUM 129 mmol/l (137-146)
[2020-04-25 22:38] LABS: MYOGLOBIN 47 ng/mL (0 - 121)
[2020-04-25 22:46] LABS: ANION GAP 13 (6-22 (CALC)); CARBON DIOXIDE 23 mmol/l (22-30); POTASSIUM 4.7 mmol/l (3.5-5.1)
[2020-04-26 03:00] VITALS: BP 127/68
== END 2020-04-26 03:05 | disposition home or self-care (01) | DRG 556 ==
LOC: ED 21:27
PROVIDERS: Emergency Medicine
DX: M79.601 Pain in right arm (principal); M54.2 Cervicalgia; R07.9 Chest pain, unspecified; E11.65 Type 2 diabetes mellitus with hyperglycemia; I10 Essential (primary) hypertension; Z79.4 Long term (current) use of insulin

== ENCOUNTER 2020-05-03 00:28 | Emergency (ER) | payer SELFPAY ==
[~2020-05-03] VITALS: Ht 190.5 cm; Wt 113.6 kg
[2020-05-03] MEDS ORDERED: GABAPENTIN300 M2 PO (00:43)
[2020-05-03] MEDS ORDERED: ORPHENADRINE100 MG PO (02:05)
[2020-05-03] MEDS ORDERED: CELEBREX200 MG PO (02:05)
[2020-05-03 02:27] VITALS: BP 146/81
== END 2020-05-03 02:27 | disposition home or self-care (01) | DRG 563 ==
LOC: ED 00:28
DX: S39.012A Strain of muscle, fascia and tendon of lower back, initial encounter (principal); E11.9 Type 2 diabetes mellitus without complications; I10 Essential (primary) hypertension; X50.0XXA Overexertion from strenuous movement or load, initial encounter; Y93.89 Activity, other specified; Z79.4 Long term (current) use of insulin

== ENCOUNTER 2020-05-17 19:33 | Emergency (ER) | payer SELFPAY ==
[~2020-05-17] VITALS: Ht 190.5 cm; Wt 112.0 kg
[~2020-05-17 19:33] MED LIST changes: +CELEBREX200 MG PO
[2020-05-17 19:55] LABS: HEMATOCRIT 44.4 % (39.0-50.0); HEMOGLOBIN 14.4 g/dl (14.0-18.0); IMMATURE GRANULOCYTES 0.3 % (0.0-5.0); MEAN CELL VOLUME 86.7 fL CALC (80.0-100.0); MEAN CORPUSCULAR HGB 28.1 pG CALC (26.0-32.0); MEAN CORPUSCULAR HGB CONC 32.4 g/dL CAL (32.0-36.0); NEUT# 8.25 thou/uL (1.82-7.42); RED BLOOD COUNT 5.12 mill/uL (4.70-6.10); RED CELL DISTRI WIDTH 12.9 % (11.5-15.5)
[2020-05-17 20:08] LABS: ALBUMIN 3.7 g/dL (3.2-5.0); BILIRUBIN, TOTAL 0.5 mg/dL (0.0-1.4); CREATININE 1.8 mg/dL (0.7-1.3); MAGNESIUM 1.9 mg/dL (1.6-2.3); TOTAL PROTEIN 7.4 g/dL (6.3-8.2)
[2020-05-17 20:12] LABS: POTASSIUM 3.2 mmol/l (3.5-5.1)
[2020-05-17 22:09] LABS: URINE BILIRUBIN - DIPSTICK NEGATIVE (NEGATIVE); URINE BLOOD DIPSTICK TRACE-LYSED (NEGATIVE); URINE COLOR YELLOW; URINE GLUCOSE - DIPSTICK >=1000 mg/dL (NEGATIVE); URINE KETONE NEGATIVE (NEGATIVE); URINE LEUK ESTERASE NEGATIVE (NEGATIVE); URINE NITRITE - DIPSTICK NEGATIVE (Negative); URINE PH 5.5 (4.5-8.0); URINE PROTEIN - DIPSTICK 100 mg/dL (NEG-TRACE); URINE SPECIFIC GRAVITY 1.025; URINE UROBILINOGEN - DIPSTICK 0.2 E.U./dL (0.2)
[2020-05-17 22:13] LABS: URINE RBC 0-2 RBC/hpf (0-5); URINE WBC 0-2 WBC/hpf (0-5)
[2020-05-17 22:39] VITALS: BP 144/90
== END 2020-05-17 23:05 | disposition home or self-care (01) | DRG 948 ==
LOC: ED 19:33
PROVIDERS: Family Medicine
DX: R53.1 Weakness (principal); E11.9 Type 2 diabetes mellitus without complications; I10 Essential (primary) hypertension; Z79.4 Long term (current) use of insulin

== ENCOUNTER 2020-06-02 23:41 | Emergency (ER) | payer SELFPAY ==
[~2020-06-02] VITALS: Ht 190.5 cm; Wt 112.0 kg
[2020-06-03] MEDS ORDERED: NOVOLOG100 UNIT/M (00:45)
[2020-06-03 01:50] VITALS: BP 128/71
[2020-06-03] MEDS ORDERED: FLEXERIL PO ×2 (01:53)
[2020-06-03] MEDS ORDERED: NAPROXEN500 MG PO ×2 (01:53)
== END 2020-06-03 02:00 | disposition home or self-care (01) | DRG 605 ==
LOC: ED 23:41
DX: S30.0XXA Contusion of lower back and pelvis, initial encounter (principal); M47.816 Spondylosis without myelopathy or radiculopathy, lumbar region; E11.9 Type 2 diabetes mellitus without complications; I10 Essential (primary) hypertension; X50.0XXA Overexertion from strenuous movement or load, initial encounter; Y92.89 Other specified places as the place of occurrence of the external cause; Y99.0 Civilian activity done for income or pay; Z79.4 Long term (current) use of insulin; Z98.1 Arthrodesis status

== ENCOUNTER 2020-06-11 20:53 | Emergency (ER) | payer SELFPAY ==
[~2020-06-11] VITALS: Ht 190.5 cm; Wt 111.6 kg
[~2020-06-11 20:53] MED LIST changes: +NAPROXEN500 MG PO; +NOVOLOG100 UNIT/M
[2020-06-11] MEDS ORDERED: ORPHENADRINE100 MG PO (21:54)
[2020-06-11] MEDS ORDERED: VOLTAREN - GENE75 MG PO (21:54)
[2020-06-11 22:35] VITALS: BP 160/97
== END 2020-06-11 22:53 | disposition home or self-care (01) | DRG 563 ==
LOC: ED 20:53
DX: S39.012A Strain of muscle, fascia and tendon of lower back, initial encounter (principal); E11.9 Type 2 diabetes mellitus without complications; I10 Essential (primary) hypertension; X58.XXXA Exposure to other specified factors, initial encounter; Z79.4 Long term (current) use of insulin

== ENCOUNTER 2020-06-20 23:55 | Emergency (ER) | payer SELFPAY ==
[~2020-06-20] VITALS: Ht 190.5 cm; Wt 109.0 kg
[2020-06-21] MEDS ORDERED: TORADOL PO ×3 (02:37→13:49)
[2020-06-21] MEDS ORDERED: ORPHENADRINE100 MG PO ×3 (02:37→13:49)
[2020-06-21 02:50] VITALS: BP 141/88
== END 2020-06-21 02:50 | disposition home or self-care (01) | DRG 552 ==
LOC: ED 23:55
DX: M47.816 Spondylosis without myelopathy or radiculopathy, lumbar region (principal); E11.9 Type 2 diabetes mellitus without complications; I10 Essential (primary) hypertension; Z79.4 Long term (current) use of insulin; Z98.890 Other specified postprocedural states

== ENCOUNTER 2020-06-25 00:15 | Emergency (ER) | payer SELFPAY ==
[~2020-06-25] VITALS: Ht 190.5 cm; Wt 113.4 kg
[2020-06-25 01:19] LABS: HEMATOCRIT 39.9 % (39.0-50.0); HEMOGLOBIN 13.7 g/dl (14.0-18.0); IMMATURE GRANULOCYTES 0.2 % (0.0-5.0); MEAN CELL VOLUME 84.2 fL CALC (80.0-100.0); MEAN CORPUSCULAR HGB 28.9 pG CALC (26.0-32.0); MEAN CORPUSCULAR HGB CONC 34.3 g/dL CAL (32.0-36.0); NEUT# 5.68 thou/uL (1.82-7.42); RED BLOOD COUNT 4.74 mill/uL (4.70-6.10); RED CELL DISTRI WIDTH 12.7 % (11.5-15.5)
[2020-06-25 01:34] LABS: ALBUMIN 3.5 g/dL (3.2-5.0); ALKALINE PHOSPHATASE 139 u/l (38-126); ANION GAP 15 (6-22 (CALC)); BUN 18 mg/dL (9-20); BUN/CREATININE RATIO 13 (12-20 (CALC)); CARBON DIOXIDE 21 mmol/l (22-30); CHLORIDE 100 mmol/l (95-108); CREATININE 1.4 mg/dL (0.7-1.3); GFR 55 ML/MIN (>=60 (CALC)); GFR FOR AFR.AMER. > 60 ML/MIN (>=60 (CALC)); POTASSIUM 3.7 mmol/l (3.5-5.1); SGOT/AST 22 u/l (17-59); SODIUM 133 mmol/l (137-146); TOTAL PROTEIN 6.8 g/dL (6.3-8.2)
[2020-06-25 01:46] LABS: BILIRUBIN, TOTAL 0.2 mg/dL (0.0-1.4); MYOGLOBIN 43 ng/mL (0 - 121)
[2020-06-25] MEDS ORDERED: LISINOPRIL10 MG PO (02:48)
[2020-06-25 03:40] VITALS: BP 158/98
== END 2020-06-25 03:40 | disposition home or self-care (01) | DRG 204 ==
LOC: ED 00:15
PROVIDERS: Family Medicine
DX: R06.00 Dyspnea, unspecified (principal); E11.9 Type 2 diabetes mellitus without complications; I10 Essential (primary) hypertension; Z79.4 Long term (current) use of insulin; Z20.828 Contact with and (suspected) exposure to other viral communicable diseases

== ENCOUNTER 2020-06-26 17:18 | Emergency (ER) | payer SELFPAY ==
[~2020-06-26] VITALS: Ht 190.5 cm; Wt 105.0 kg
[2020-06-26 18:05] VITALS: BP 213/114
== END 2020-06-26 18:05 | disposition home or self-care (01) | DRG 93 ==
LOC: ED 17:18
DX: G89.29 Other chronic pain (principal); M54.5 Low back pain; E11.9 Type 2 diabetes mellitus without complications; I10 Essential (primary) hypertension; Z79.4 Long term (current) use of insulin

== ENCOUNTER 2020-07-03 16:41 | Emergency (ER) | payer SELFPAY ==
[~2020-07-03] VITALS: Ht 190.5 cm; Wt 109.0 kg
[2020-07-03 17:32] LABS: HEMATOCRIT 40.1 % (39.0-50.0); HEMOGLOBIN 13.7 g/dl (14.0-18.0); IMMATURE GRANULOCYTES 0.2 % (0.0-5.0); MEAN CELL VOLUME 84.4 fL CALC (80.0-100.0); MEAN CORPUSCULAR HGB 28.8 pG CALC (26.0-32.0); MEAN CORPUSCULAR HGB CONC 34.2 g/dL CAL (32.0-36.0); NEUT# 7.31 thou/uL (1.82-7.42); RED BLOOD COUNT 4.75 mill/uL (4.70-6.10); RED CELL DISTRI WIDTH 12.9 % (11.5-15.5)
[2020-07-03 17:46] LABS: ALBUMIN 3.5 g/dL (3.2-5.0); ALKALINE PHOSPHATASE 148 u/l (38-126); ANION GAP 11 (6-22 (CALC)); BUN 18 mg/dL (9-20); BUN/CREATININE RATIO 13 (12-20 (CALC)); CARBON DIOXIDE 21 mmol/l (22-30); CHLORIDE 105 mmol/l (95-108); CREATININE 1.4 mg/dL (0.7-1.3); GFR 55 ML/MIN (>=60 (CALC)); GFR FOR AFR.AMER. > 60 ML/MIN (>=60 (CALC)); POTASSIUM 4.1 mmol/l (3.5-5.1); SGOT/AST 17 u/l (17-59); SODIUM 133 mmol/l (137-146)
[2020-07-03 17:50] LABS: BILIRUBIN, TOTAL 0.6 mg/dL (0.0-1.4)
[2020-07-03 21:25] VITALS: BP 151/87
== END 2020-07-03 21:25 | disposition home or self-care (01) | DRG 313 ==
LOC: ED 16:41
PROVIDERS: Student in an Organized Health Care Education/Training Program
DX: R07.89 Other chest pain (principal); E11.9 Type 2 diabetes mellitus without complications; I10 Essential (primary) hypertension; E78.00 Pure hypercholesterolemia, unspecified; Z79.4 Long term (current) use of insulin

== ENCOUNTER 2020-07-12 13:41 | Emergency (ER) | payer SELFPAY ==
[~2020-07-12] VITALS: Ht 190.5 cm; Wt 110.0 kg
[2020-07-12 14:39] VITALS: BP 147/92
== END 2020-07-12 14:44 | disposition home or self-care (01) | DRG 552 ==
LOC: ED 13:41
DX: M54.5 Low back pain (principal); E11.9 Type 2 diabetes mellitus without complications; I10 Essential (primary) hypertension; Z79.4 Long term (current) use of insulin

== ENCOUNTER 2020-08-01 16:13 | Emergency (ER) | payer SELFPAY ==
[~2020-08-01] VITALS: Ht 190.5 cm; Wt 109.0 kg
[2020-08-01 18:08] VITALS: BP 180/98
== END 2020-08-01 18:13 | disposition home or self-care (01) | DRG 552 ==
LOC: ED 16:13
DX: M54.5 Low back pain (principal); G89.29 Other chronic pain; E11.9 Type 2 diabetes mellitus without complications; I10 Essential (primary) hypertension; Z98.1 Arthrodesis status; Z79.4 Long term (current) use of insulin

== ENCOUNTER 2020-08-15 15:27 | Emergency (ER) | payer SELFPAY ==
[~2020-08-15] VITALS: Ht 190.5 cm; Wt 106.4 kg
[2020-08-15 16:12] VITALS: BP 170/82
== END 2020-08-15 16:12 | disposition home or self-care (01) | DRG 93 ==
LOC: ED 15:27
DX: G89.29 Other chronic pain (principal); M54.5 Low back pain; E11.9 Type 2 diabetes mellitus without complications; I10 Essential (primary) hypertension; Z79.4 Long term (current) use of insulin

== ENCOUNTER 2020-08-29 17:58 | Emergency (ER) | payer SELFPAY ==
[~2020-08-29] VITALS: Ht 190.5 cm; Wt 110.4 kg
[2020-08-29 18:29] LABS: HEMOGLOBIN 14.5 g/dl (14.0-18.0); IMMATURE GRANULOCYTES 0.3 % (0.0-5.0); MEAN CELL VOLUME 85.8 fL CALC (80.0-100.0); MEAN CORPUSCULAR HGB 28.9 pG CALC (26.0-32.0); MEAN CORPUSCULAR HGB CONC 33.7 g/dL CAL (32.0-36.0); NEUT# 6.63 thou/uL (1.82-7.42); RED BLOOD COUNT 5.01 mill/uL (4.70-6.10); RED CELL DISTRI WIDTH 13.3 % (11.5-15.5)
[2020-08-29 18:48] LABS: BILIRUBIN, TOTAL 0.5 mg/dL (0.0-1.4); POTASSIUM 4.3 mmol/l (3.5-5.1)
[2020-08-29 19:08] LABS: CREATININE 2.4 mg/dL (0.7-1.3)
[2020-08-29 19:33] VITALS: BP 108/67
== END 2020-08-29 19:43 | disposition home or self-care (01) | DRG 639 ==
LOC: ED 17:58
DX: E11.65 Type 2 diabetes mellitus with hyperglycemia (principal); I10 Essential (primary) hypertension; Z79.4 Long term (current) use of insulin

== ENCOUNTER 2020-09-18 22:28 | Emergency (ER) | payer SELFPAY ==
[~2020-09-18] VITALS: Ht 190.5 cm; Wt 110.4 kg
[2020-09-18 23:43] VITALS: BP 150/91
== END 2020-09-18 23:50 | disposition home or self-care (01) | DRG 605 ==
LOC: ED 22:28
DX: S30.0XXA Contusion of lower back and pelvis, initial encounter (principal); E11.9 Type 2 diabetes mellitus without complications; I10 Essential (primary) hypertension; W50.0XXA Accidental hit or strike by another person, initial encounter; Y99.0 Civilian activity done for income or pay; Z79.4 Long term (current) use of insulin

== ENCOUNTER 2020-10-04 13:03 | Emergency (ER) | payer SELFPAY ==
[~2020-10-04] VITALS: Ht 190.5 cm; Wt 109.0 kg
[2020-10-04] MEDS ORDERED: TRAMADOL HCL50 MG PO (13:30)
[2020-10-04] MEDS ORDERED: GABAPENTIN100 MG PO (13:31)
[2020-10-04 13:41] VITALS: BP 153/96
== END 2020-10-04 13:49 | disposition home or self-care (01) | DRG 552 ==
LOC: ED 13:03
DX: M51.86 Other intervertebral disc disorders, lumbar region (principal); E11.9 Type 2 diabetes mellitus without complications; I10 Essential (primary) hypertension; Z79.4 Long term (current) use of insulin

== ENCOUNTER 2020-12-03 15:40 | Emergency (ER) | payer SELFPAY ==
[~2020-12-03] VITALS: Ht 190.5 cm; Wt 109.0 kg
[~2020-12-03 15:40] MED LIST changes: +GABAPENTIN100 MG PO
[2020-12-03] MEDS ORDERED: TAM75CAP PO (16:43)
[2020-12-03] MEDS ORDERED: LISINOPRIL10 MG PO (16:48)
[2020-12-03 17:02] VITALS: BP 171/93
== END 2020-12-03 17:02 | disposition home or self-care (01) | DRG 195 ==
LOC: ED 15:40
DX: J10.1 Influenza due to other identified influenza virus with other respiratory manifestations (principal); E11.9 Type 2 diabetes mellitus without complications; I10 Essential (primary) hypertension; Z79.4 Long term (current) use of insulin; Z20.822 Contact with and (suspected) exposure to COVID-19

== ENCOUNTER 2021-01-27 15:16 | Emergency (ER) | payer SELFPAY ==
[~2021-01-27 15:16] MED LIST changes: +TAM75CAP PO
[2021-01-27] MEDS ORDERED: LEVEMIR100 UNIT/M SC (15:47)
[2021-01-27] MEDS ORDERED: ZESTRIL10 M1 PO ×2 (16:22→16:31)
[2021-01-27] MEDS ORDERED: TAM75CAP PO ×2 (16:22→16:31)
[2021-01-27 16:32] VITALS: BP 182/108
== END 2021-01-27 16:38 | disposition home or self-care (01) | DRG 195 ==
LOC: ED 15:16
DX: J10.1 Influenza due to other identified influenza virus with other respiratory manifestations (principal); I10 Essential (primary) hypertension; E11.9 Type 2 diabetes mellitus without complications; T46.5X6A Underdosing of other antihypertensive drugs, initial encounter; Z91.128 Patient's intentional underdosing of medication regimen for other reason; Z79.4 Long term (current) use of insulin; Z20.822 Contact with and (suspected) exposure to COVID-19

== ENCOUNTER 2021-01-29 13:59 | Emergency (ER) | payer BC ==
[~2021-01-29 13:59] MED LIST changes: +ZESTRIL10 M1 PO
[2021-01-29 16:10] VITALS: BP 164/96
== END 2021-01-29 16:10 | disposition home or self-care (01) | DRG 552 ==
LOC: ED 13:59
DX: M54.5 Low back pain (principal); G89.29 Other chronic pain; E11.9 Type 2 diabetes mellitus without complications; I10 Essential (primary) hypertension; W01.0XXA Fall on same level from slipping, tripping and stumbling without subsequent striking against object, initial encounter; Y92.009 Unspecified place in unspecified non-institutional (private) residence as the place of occurrence of the external cause; Z98.1 Arthrodesis status; Z79.4 Long term (current) use of insulin

== ENCOUNTER 2021-02-02 15:10 | Emergency (ER) | payer BC ==
[2021-02-02] MEDS ORDERED: MEDDOSEPAK PO (15:38)
[2021-02-02] MEDS ORDERED: FLEXERIL5 M1 PO (15:38)
[2021-02-02 16:20] VITALS: BP 139/89
[2021-02-03] MEDS ORDERED: HUMALOG100 MG/ML SC (11:55)
[2021-02-03] MEDS ORDERED: NEURONTIN300 MG PO (11:56)
== END 2021-02-02 16:20 | disposition home or self-care (01) | DRG 93 ==
LOC: ED 15:10
DX: G89.29 Other chronic pain (principal); M51.27 Other intervertebral disc displacement, lumbosacral region; E11.9 Type 2 diabetes mellitus without complications; I10 Essential (primary) hypertension; Z79.4 Long term (current) use of insulin

== ENCOUNTER 2021-02-03 10:50 | Emergency (ER) | payer BC ==
[~2021-02-03 10:50] MED LIST changes: +FLEXERIL5 M1 PO
[2021-02-03 11:28] LABS: URINE BILIRUBIN - DIPSTICK NEGATIVE (NEGATIVE); URINE BLOOD DIPSTICK MODERATE (NEGATIVE); URINE COLOR YELLOW; URINE GLUCOSE - DIPSTICK >=1000 mg/dL (NEGATIVE); URINE KETONE NEGATIVE (NEGATIVE); URINE LEUK ESTERASE NEGATIVE (NEGATIVE); URINE PROTEIN - DIPSTICK >=300 mg/dL (NEG-TRACE); URINE SPECIFIC GRAVITY 1.025; URINE UROBILINOGEN - DIPSTICK 0.2 E.U./dL (0.2)
[2021-02-03 11:40] LABS: HEMATOCRIT 38.4 % (39.0-50.0); HEMOGLOBIN 13.1 g/dl (14.0-18.0); IMMATURE GRANULOCYTES 0.3 % (0.0-5.0); MEAN CELL VOLUME 83.8 fL CALC (80.0-100.0); MEAN CORPUSCULAR HGB 28.6 pG CALC (26.0-32.0); MEAN CORPUSCULAR HGB CONC 34.1 g/dL CAL (32.0-36.0); NEUT# 9.62 thou/uL (1.82-7.42); RED BLOOD COUNT 4.58 mill/uL (4.70-6.10); RED CELL DISTRI WIDTH 13.8 % (11.5-15.5)
[2021-02-03 11:48] LABS: URINE NITRITE - DIPSTICK NEGATIVE (Negative)
[2021-02-03 11:50] LABS: URINE BACTERIA FEW hpf; URINE EPITHELIAL CELLS FEW EPI/hpf (0-FEW); URINE MUCUS MODERATE hpf (NONE-FEW); URINE WBC 0-2 WBC/hpf (0-5)
[2021-02-03] MEDS ORDERED: HUMALOG100 MG/ML SC (11:55)
[2021-02-03] MEDS ORDERED: NEURONTIN300 MG PO (11:56)
[2021-02-03 12:07] LABS: ALBUMIN 3.3 g/dL (3.2-5.0); BILIRUBIN, TOTAL 0.6 mg/dL (0.0-1.4); CREATININE 1.7 mg/dL (0.7-1.3); POTASSIUM 3.9 mmol/l (3.5-5.1); TOTAL PROTEIN 6.7 g/dL (6.3-8.2)
[2021-02-03 12:44] VITALS: BP 141/77
== END 2021-02-03 12:49 | disposition home or self-care (01) | DRG 379 ==
LOC: ED 10:50
PROVIDERS: Family Medicine
DX: K92.1 Melena (principal); E11.65 Type 2 diabetes mellitus with hyperglycemia; I10 Essential (primary) hypertension; Z79.4 Long term (current) use of insulin

== ENCOUNTER 2021-02-06 00:34 | Emergency (ER) | payer BC ==
[~2021-02-06 00:34] MED LIST changes: +HUMALOG100 MG/ML SC; +NEURONTIN300 MG PO
[2021-02-06 01:48] VITALS: BP 103/59
== END 2021-02-06 01:48 | disposition home or self-care (01) | DRG 563 ==
LOC: ED 00:34
DX: S39.012A Strain of muscle, fascia and tendon of lower back, initial encounter (principal); E11.9 Type 2 diabetes mellitus without complications; I10 Essential (primary) hypertension; W01.0XXA Fall on same level from slipping, tripping and stumbling without subsequent striking against object, initial encounter; Y92.511 Restaurant or cafe as the place of occurrence of the external cause; Y99.0 Civilian activity done for income or pay; Z79.84 Long term (current) use of oral hypoglycemic drugs; Z98.1 Arthrodesis status

== ENCOUNTER 2021-02-13 18:16 | Emergency (ER) | payer BC ==
[~2021-02-13] VITALS: Ht 190.5 cm; Wt 125.0 kg
[2021-02-13 19:14] LABS: HEMATOCRIT 41.8 % (39.0-50.0); HEMOGLOBIN 13.8 g/dl (14.0-18.0); IMMATURE GRANULOCYTES 0.3 % (0.0-5.0); MEAN CELL VOLUME 86.9 fL CALC (80.0-100.0); MEAN CORPUSCULAR HGB 28.7 pG CALC (26.0-32.0); NEUT# 6.99 thou/uL (1.82-7.42); RED BLOOD COUNT 4.81 mill/uL (4.70-6.10); RED CELL DISTRI WIDTH 14.3 % (11.5-15.5)
[2021-02-13 19:26] LABS: ALBUMIN 3.4 g/dL (3.2-5.0); ALKALINE PHOSPHATASE 169 u/l (38-126); BILIRUBIN, TOTAL 0.6 mg/dL (0.0-1.4); BUN 33 mg/dL (9-20); CPK 353 u/l (52-200); SGOT/AST 21 u/l (17-59); TOTAL PROTEIN 7.1 g/dL (6.3-8.2)
[2021-02-13 19:38] LABS: URINE BILIRUBIN - DIPSTICK NEGATIVE (NEGATIVE); URINE BLOOD DIPSTICK SMALL (NEGATIVE); URINE CLARITY CLEAR; URINE COLOR YELLOW; URINE GLUCOSE - DIPSTICK >=1000 mg/dL (NEGATIVE); URINE KETONE NEGATIVE (NEGATIVE); URINE LEUK ESTERASE NEGATIVE (Negative); URINE NITRITE - DIPSTICK NEGATIVE (Negative); URINE PH 5.5 (4.5-8.0); URINE PROTEIN - DIPSTICK >=300 mg/dL (NEG-TRACE); URINE SPECIFIC GRAVITY >=1.030; URINE UROBILINOGEN - DIPSTICK 0.2 E.U./dL (0.2)
[2021-02-13 19:46] LABS: URINE RBC 0-2 RBC/hpf (0-5)
[2021-02-13] MEDS ORDERED: COMBIVIR 1501 COMBO PO (19:48)
[2021-02-13 20:15] VITALS: BP 130/79
== END 2021-02-13 20:15 | disposition home or self-care (01) | DRG 605 ==
LOC: ED 18:16
DX: S61.432A Puncture wound without foreign body of left hand, initial encounter (principal); E11.9 Type 2 diabetes mellitus without complications; I10 Essential (primary) hypertension; W46.0XXA Contact with hypodermic needle, initial encounter; Y93.89 Activity, other specified; Y92.511 Restaurant or cafe as the place of occurrence of the external cause; Y99.0 Civilian activity done for income or pay; Z79.4 Long term (current) use of insulin

== ENCOUNTER 2021-02-26 00:37 | Emergency (ER) | payer BC ==
[~2021-02-26] VITALS: Ht 190.5 cm; Wt 114.0 kg
[~2021-02-26 00:37] MED LIST changes: +COMBIVIR 1501 COMBO PO
[2021-02-26] MEDS ORDERED: LEVEMIR100 UNIT SC (01:03)
[2021-02-26] MEDS ORDERED: TRAMADOL HCL50 MG PO (01:04)
[2021-02-26 03:53] VITALS: BP 138/88
== END 2021-02-26 03:53 | disposition home or self-care (01) | DRG 93 ==
LOC: ED 00:37
DX: G89.29 Other chronic pain (principal); M51.26 Other intervertebral disc displacement, lumbar region; E11.9 Type 2 diabetes mellitus without complications; I10 Essential (primary) hypertension; Z79.4 Long term (current) use of insulin

== ENCOUNTER 2021-04-21 15:16 | Emergency (ER) | payer BC ==
[~2021-04-21] VITALS: Ht 190.5 cm; Wt 109.0 kg
[~2021-04-21 15:16] MED LIST changes: +LEVEMIR100 UNIT SC
[2021-04-21] MEDS ORDERED: FLEXERIL5 M1 PO (16:31)
[2021-04-21 16:56] VITALS: BP 178/109
== END 2021-04-21 17:11 | disposition home or self-care (01) | DRG 552 ==
LOC: ED 15:16
DX: M54.5 Low back pain (principal); E11.9 Type 2 diabetes mellitus without complications; I10 Essential (primary) hypertension; Z79.4 Long term (current) use of insulin

== ENCOUNTER 2021-05-01 19:21 | Emergency (ER) | payer BC ==
[~2021-05-01] VITALS: Ht 190.5 cm; Wt 109.0 kg
[2021-05-01 21:15] LABS: HEMATOCRIT 40.6 % (39.0-50.0); HEMOGLOBIN 13.6 g/dl (14.0-18.0); IMMATURE GRANULOCYTES 0.1 % (0.0-5.0); MEAN CELL VOLUME 87.9 fL CALC (80.0-100.0); MEAN CORPUSCULAR HGB 29.4 pG CALC (26.0-32.0); MEAN CORPUSCULAR HGB CONC 33.5 g/dL CAL (32.0-36.0); NEUT# 5.35 thou/uL (1.82-7.42); RED BLOOD COUNT 4.62 mill/uL (4.70-6.10)
[2021-05-01 21:20] LABS: ALBUMIN 3.2 g/dL (3.2-5.0); CREATININE 1.8 mg/dL (0.7-1.3); POTASSIUM 4.1 mmol/l (3.5-5.1); TOTAL PROTEIN 6.6 g/dL (6.3-8.2)
[2021-05-01 21:27] LABS: BILIRUBIN, TOTAL 0.3 mg/dL (0.0-1.4)
[2021-05-01] MEDS ORDERED: IMODIUM2 MG PO (21:43)
[2021-05-01 22:05] VITALS: BP 149/96
== END 2021-05-01 22:06 | disposition home or self-care (01) | DRG 195 ==
LOC: ED 19:21
PROVIDERS: Family Medicine
DX: J10.1 Influenza due to other identified influenza virus with other respiratory manifestations (principal); I10 Essential (primary) hypertension; E11.9 Type 2 diabetes mellitus without complications; Z79.4 Long term (current) use of insulin; Z20.822 Contact with and (suspected) exposure to COVID-19

== ENCOUNTER 2021-10-18 22:51 | Emergency (ER) | payer BC ==
[~2021-10-18] VITALS: Ht 190.5 cm; Wt 113.0 kg
[~2021-10-18 22:51] MED LIST changes: +IMODIUM2 MG PO
[2021-10-19 01:19] LABS: HEMATOCRIT 38.6 % (39.0-50.0); HEMOGLOBIN 12.6 g/dl (14.0-18.0); IMMATURE GRANULOCYTES 0.5 % (0.0-5.0); MEAN CELL VOLUME 88.9 fL CALC (80.0-100.0); MEAN CORPUSCULAR HGB CONC 32.6 g/dL CAL (32.0-36.0); NEUT# 5.55 thou/uL (1.82-7.42); RED BLOOD COUNT 4.34 mill/uL (4.70-6.10); RED CELL DISTRI WIDTH 13.1 % (11.5-15.5)
[2021-10-19] MEDS ORDERED: KEFLEX500 MG PO (01:32)
[2021-10-19 01:42] LABS: ALBUMIN 3.1 g/dL (3.2-5.0); BILIRUBIN, TOTAL 0.4 mg/dL (0.0-1.4); CREATININE 2.5 mg/dL (0.7-1.3); POTASSIUM 4.3 mmol/l (3.5-5.1); TOTAL PROTEIN 6.5 g/dL (6.3-8.2)
[2021-10-19] MEDS ORDERED: CLINDAMYCIN300 M1 PO (02:11)
[2021-10-19 03:54] VITALS: BP 167/94
== END 2021-10-19 03:03 | disposition home or self-care (01) | DRG 638 ==
LOC: ED 22:51
DX: E11.621 Type 2 diabetes mellitus with foot ulcer (principal); L97.421 Non-pressure chronic ulcer of left heel and midfoot limited to breakdown of skin; E11.65 Type 2 diabetes mellitus with hyperglycemia; I10 Essential (primary) hypertension; Z79.4 Long term (current) use of insulin

== ENCOUNTER 2021-11-05 09:21 | Emergency (ER) | payer OTHER, BC ==
[~2021-11-05] VITALS: Ht 190.5 cm; Wt 100.0 kg
[~2021-11-05 09:21] MED LIST changes: +KEFLEX500 MG PO
[2021-11-05] MEDS ORDERED: TRAMADOL HCL50 MG PO (10:53)
[2021-11-05 11:11] VITALS: BP 187/102
== END 2021-11-05 11:23 | disposition home or self-care (01) | DRG 605 ==
LOC: ED 09:21
DX: S30.0XXA Contusion of lower back and pelvis, initial encounter (principal); E11.9 Type 2 diabetes mellitus without complications; I10 Essential (primary) hypertension; Z79.4 Long term (current) use of insulin; W20.8XXA Other cause of strike by thrown, projected or falling object, initial encounter; Y92.512 Supermarket, store or market as the place of occurrence of the external cause

== ENCOUNTER 2021-12-07 10:10 | Emergency (ER) | payer BC ==
[~2021-12-07] VITALS: Ht 190.5 cm; Wt 115.0 kg
[2021-12-07] VITALS (10 sets, daily range): BP systolic 149–181; BP diastolic 88–112
[~2021-12-07 10:10] MED LIST changes: -HUMALOG100 MG/ML SC; +NOVOLOG100 UNIT SC
[2021-12-07] MEDS ORDERED: GABAPENTIN300 M2 PO (12:50)
[2021-12-07] MEDS ORDERED: MOTRIN800 MG PO (12:51)
[2021-12-07] MEDS ORDERED: LISINOPRIL10 MG PO (12:52)
[2021-12-07] MEDS ORDERED: FLEXERIL5 M1 PO (12:54)
[2021-12-07] MEDS ORDERED: DOXYCYCL HYC100 M4 PO (15:31)
== END 2021-12-07 16:02 | disposition home or self-care (01) | DRG 638 ==
LOC: ED 10:10
DX: E11.621 Type 2 diabetes mellitus with foot ulcer (principal); L97.429 Non-pressure chronic ulcer of left heel and midfoot with unspecified severity; I10 Essential (primary) hypertension; E66.9 Obesity, unspecified; Z79.4 Long term (current) use of insulin

== ENCOUNTER 2022-01-14 15:06 | Emergency (ER) | payer BC ==
[~2022-01-14] VITALS: Ht 190.5 cm; Wt 95.0 kg
[~2022-01-14 15:06] MED LIST changes: +DOXYCYCL HYC100 M4 PO; +MOTRIN800 MG PO
[2022-01-14 15:17] VITALS: BP 174/116
[2022-01-14 15:30] VITALS: BP 168/105
[2022-01-14 15:42] LABS: HEMATOCRIT 42.5 % (39.0-50.0); HEMOGLOBIN 14.1 g/dl (14.0-18.0); IMMATURE GRANULOCYTES 0.1 % (0.0-5.0); MEAN CELL VOLUME 85.7 fL CALC (80.0-100.0); MEAN CORPUSCULAR HGB 28.4 pG CALC (26.0-32.0); MEAN CORPUSCULAR HGB CONC 33.2 g/dL CAL (32.0-36.0); NEUT# 5.44 thou/uL (1.82-7.42); RED BLOOD COUNT 4.96 mill/uL (4.70-6.10)
[2022-01-14 15:45] VITALS: BP 172/95
[2022-01-14 15:54] LABS: ALBUMIN 3.5 g/dL (3.2-5.0); BILIRUBIN, TOTAL 0.6 mg/dL (0.0-1.4); CREATININE 1.7 mg/dL (0.7-1.3); TOTAL PROTEIN 7.5 g/dL (6.3-8.2)
[2022-01-14 16:00] VITALS: BP 161/103
[2022-01-14] MEDS ORDERED: OMNI-PAC300 MG PO (16:04)
[2022-01-14] MEDS ORDERED: ZOFRAN4 MG/TAB PO (16:04)
[2022-01-14 16:40] VITALS: BP 161/103
== END 2022-01-14 16:41 | disposition home or self-care (01) | DRG 603 ==
LOC: ED 15:06
PROVIDERS: Family Medicine
DX: L03.116 Cellulitis of left lower limb (principal); I10 Essential (primary) hypertension; E11.9 Type 2 diabetes mellitus without complications; Z79.4 Long term (current) use of insulin